=== PATIENT | female | born 1935 | race Caucasian/White ===

== ENCOUNTER 2020-01-15 06:45 | Outpatient (CLI) | payer BC, OTHER ==
[2020-01-15 16:11] LABS: INR-International Normal Ratio 1.6; PTT 35.9 sec (22.9-36.1)
[2020-01-16 12:00] LABS: SARS-CoV-2 MS2 Positive; SARS-CoV-2 N Gene Negative; SARS-CoV-2 S Gene Negative; SARS-CoV-2 by NAA Not Detected (NotDetected); SARS-CoV-2 orf1ab Negative
--- NOTE | 2020-01-17 12:12 | EKG ---
Test Reason : Blood Pressure : / mmHG Vent. Rate : 098 BPM Atrial Rate : 196 BPM P-R Int : 000 ms QRS Dur : 090 ms QT Int : 274 ms P-R-T Axes : 089 -43 -78 degrees QTc Int : 349 ms Atrial flutter with 2:1 A-V conduction Left axis deviation RSR' or QR pattern in V1 suggests right ventricular conduction delay Marked ST abnormality, possible inferior subendocardial injury Abnormal ECG No previous ECGs available Confirmed by VERONICA HUERTA (2) on 01/17/2020 12:12:17 PM Referred By: MILLIE Confirmed By:VERONICA HUERTA
== END 2020-01-15 06:46 | disposition home or self-care (01) ==
LOC: LABBT 06:45
PROVIDERS: ATTEND Internal Medicine Cardiovascular Disease
DX: Z01.818 Encounter for other preprocedural examination (principal); I48.91 Unspecified atrial fibrillation; Z20.828 Contact with and (suspected) exposure to other viral communicable diseases
CPT/HCPCS: 36415; 80061; 84439; 84443; 85610; 85730; 87635; 93005; 93010; U0003

== ENCOUNTER 2020-01-20 10:54 | Day surgery (SDC) | payer BC ==
[2020-01-19 14:09] VITALS: BMI 21.2
[2020-01-20] MEDS ORDERED: PROPOFOL 20 ML ONE (11:40)
[2020-01-20] MEDS ORDERED: Lidocaine 1% PF 5 ML VIAL ONE (11:40)
--- NOTE | 2020-01-20 12:17 | OP ---
DATE OF PROCEDURE: 01/20/2020 PROCEDURE PERFORMED: External electrical cardioversion. REASON FOR PROCEDURE: Ms. Hong is an 84-year-old lady with prior history of persisting atrial fibrillation, started on amiodarone out of town couple of months ago. She has still persisting atypical atrial flutter. She has been well anticoagulated with appropriately reduced dose of Eliquis for well over a month. She is here for a planned cardioversion. DESCRIPTION OF PROCEDURE: The patient received propofol by Anesthesia specialist. After adequate level of sedation achieved, a synchronized 100-joule shock promptly converted the patient back to sinus rhythm. Returned rhythm was 60 beats per minute. The patient tolerated the procedure well. No complications noted. CONCLUSION: Successful cardioversion. PLAN: Continue Eliquis and amiodarone at least intermediate term. Follow up in the office to assess symptoms. Job ID: [id number]
== END 2020-01-20 13:20 | disposition home or self-care (01) ==
LOC: SDC 10:54 → CCL 13:20
PROVIDERS: ATTEND Internal Medicine Cardiovascular Disease
PROC: 5A2204Z Restoration of Cardiac Rhythm, Single (ICD-10-PCS; principal; 2020-01-20)
DX: I48.19 Other persistent atrial fibrillation (principal); I48.4 Atypical atrial flutter; I25.10 Atherosclerotic heart disease of native coronary artery without angina pectoris; I25.2 Old myocardial infarction; I10 Essential (primary) hypertension; I05.9 Rheumatic mitral valve disease, unspecified; E78.5 Hyperlipidemia, unspecified; Z79.01 Long term (current) use of anticoagulants; Z79.899 Other long term (current) drug therapy; Z87.891 Personal history of nicotine dependence; Z95.1 Presence of aortocoronary bypass graft
CPT/HCPCS: 92960; 93005; 93010; J2704

== ENCOUNTER 2020-03-07 12:37 | Outpatient (CLI) | payer BC, MEDICARE ==
--- NOTE | 2020-03-07 14:29 | ULT ---
Thyroid sonogram HISTORY: Thyroid nodules. FINDINGS: The right thyroid lobe measures up to 4.1 cm length. There are innumerable solid and cystic nodules throughout. The largest is a well-circumscribed oval heterogeneous predominantly solid hypoechoic nodule at the inferior pole that is 1.6 cm depth by 1.7 cm length by 1.1 cm width. No inte rnal calcifications. Slightly lobular margins. Isthmus is 0.2 cm thick. Left thyroid lobe measures up to 4.6 cm. Multiple solid and cystic nodules are also present on the le ft. The largest is a well-circumscribed oval heterogeneous predominantly isoechoic nodule at the superficial aspect of the midportion. It is 1.2 cm length by 0.8 cm width by 0.8 cm depth. IMPRESSION : Multiple the lateral thyroid nodules. The most aggressive is a complex lesion at the inferior pole of the right thyroid lobe. TI RADS 5. Highly suspicious. Given the size, tissue sampling is warranted. Consider sonographic guided FNA.
== END 2020-03-07 12:38 | disposition home or self-care (01) ==
LOC: BICULT 12:37
PROVIDERS: ATTEND Internal Medicine Cardiovascular Disease
DX: E04.2 Nontoxic multinodular goiter (principal); E07.89 Other specified disorders of thyroid
CPT/HCPCS: 76536

== ENCOUNTER 2020-04-22 12:04 | Outpatient (CLI) | payer MEDICARE, BC ==
[2020-04-23 06:16] LABS: SARS-CoV-2 PCR by NAA Not Detected (NotDetected)
== END 2020-04-22 12:05 | disposition home or self-care (01) ==
LOC: LABBT 12:04
PROVIDERS: ATTEND Specialist
DX: Z01.812 Encounter for preprocedural laboratory examination (principal); Z20.822 Contact with and (suspected) exposure to COVID-19; E04.1 Nontoxic single thyroid nodule
CPT/HCPCS: U0003; U0005; 87635

== ENCOUNTER 2020-04-27 12:35 | Day surgery (SDC) | payer MEDICARE, BC ==
[2020-04-26 14:39] VITALS: BMI 21.2
[2020-04-27] MEDS ORDERED: Lidocaine 1% PF 5 ML VIAL ONE (12:40)
[2020-04-27] MEDS ORDERED: Sodium Bicarbonate 2.5 MEQ/5 ML VIAL ONE (12:40)
--- NOTE | 2020-04-27 14:25 | ULT ---
Thyroid mass FNA sonographic guided HISTORY: Thyroid mass. FINDINGS: After explaining the procedure and answering all questions, the heterogeneous tolerated sachin ler than wide nodule at the inferior aspect of the right thyroid lobe was again visualized. Sterile technique, buffered local anesthesia, sonographic guidance, and a medial approach were used t o carefully advance a 25-gauge needle into the heterogeneous solid thyroid mass. Position was confirmed with sonography. A total of 4 FNA passes were made. Tissue was submitted to pathology for processing. Postprocedure imaging shows no evidence of complication. Patient tolerated the procedure well and was dismissed in good condition. IMPRESSION : Technically successful sonographic guided FNA right thyroid lobe mass. Pathology is pending.
[2020-04-27 14:35] VITALS: BP 132/62; TEMP 98.1
== END 2020-04-27 14:00 | disposition home or self-care (01) ==
LOC: ULT 12:35
PROVIDERS: ATTEND Specialist
PROC: 0GBH3ZX Excision of Right Thyroid Gland Lobe, Percutaneous Approach, Diagnostic (ICD-10-PCS; principal; 2020-04-27)
DX: E04.1 Nontoxic single thyroid nodule (principal); I48.91 Unspecified atrial fibrillation; I25.10 Atherosclerotic heart disease of native coronary artery without angina pectoris; I12.9 Hypertensive chronic kidney disease with stage 1 through stage 4 chronic kidney disease, or unspecified chronic kidney disease; N18.9 Chronic kidney disease, unspecified; Z79.01 Long term (current) use of anticoagulants; Z79.899 Other long term (current) drug therapy; Z87.891 Personal history of nicotine dependence
CPT/HCPCS: 60100; 76942; 88173; 90471; 90732; G0009

== ENCOUNTER 2020-05-19 09:38 | Outpatient (CLI) | payer MEDICARE, BC ==
--- NOTE | 2020-05-19 11:32 | ULT ---
ULTRASOUND RETROPERITONEUM COMPLETE: (RENAL) DATE: 05/19/2020 HISTORY: 84-year-old female with chronic kidney disease, stage unspecified FINDINGS: The right kidney measures 10 x 4 x 4 cm. The left kidney measures 9.5 x 4.5 x 4 cm. Both kidneys have normal parenchymal echogenicity. There is no hydronephrosis. No moderate sized or large renal cystic or solid renal lesion is identified. Cursory images of the urinary bladder demonstrate no gross abnormality. Small right pleural effusion. Small amount of free fluid in Morison's pouch. IMPRESSION: 1. Normal sonographic appearance of the kidneys. 2. Minimal ascites. 3. Right pleural effusion.
== END 2020-05-19 09:39 | disposition home or self-care (01) ==
LOC: BICULT 09:38
PROVIDERS: ATTEND Internal Medicine Nephrology
DX: N18.4 Chronic kidney disease, stage 4 (severe) (principal); R18.8 Other ascites; J90 Pleural effusion, not elsewhere classified
CPT/HCPCS: 76770

== ENCOUNTER 2020-05-25 17:17 | Inpatient (IN) | payer MEDICARE ==
--- NOTE | 2020-05-25 17:40 | RAD ---
XR Chest Pa Lat STANDARD HISTORY: Shortness of breath with fatigue COMPARISON: None FINDINGS: There are changes of median sternotomy and valvular surgery. The heart size is borderline. The aorta is tortuous. No pneumothoraces are seen. There is a small-moderate right-sided pleural effusion with adjacent infiltrate/atelectatic changes. No pneumothoraces are seen.
[2020-05-25 18:31] LABS: Hemoglobin 7.9 g/dL (12.0-16.0); Mean Corpuscular HGB CONC 29.6 g/dL (32.0-36.0); Mean Corpuscular Hemoglobin 25.9 pg (27.0-31.0); Mean Corpuscular Volume 87.4 fL (78.0-98.0); Mean Platelet Volume 9.3 fL (7.4-10.4); Platelet Count 200 thou/uL (130-400); RBC Distribution Width 13.7 % (11.5-14.5); Red Blood Cell (RBC) Count 3.06 mill/uL (4.20-5.40); White Blood Cell (WBC) Count 6.1 thou/uL (4.8-10.8)
[2020-05-25 18:32] LABS: #Eosinphils 0.3 thou/uL (0.0-0.7); #Monocytes 0.7 thou/uL (0.11-0.59); #Neutrophils 4.1 thou/uL (1.40-6.50); %Basophils 0.8 % (0.0-1.0); %Eosinophils 4.2 % (0.0-10.0); %Lymphocytes 16.9 % (21.0-51.0); %Monocytes 11.2 % (0.0-10.0); %Neutrophils 66.9 % (42.0-75.0)
[2020-05-25 18:41] LABS: ALT (SGPT) 22 U/L (8-55); AST (SGOT) 31 U/L (5-34); Albumin 3.7 g/dL (3.4-4.8); Alkaline Phosphatase 103 U/L (40-110); Anion Gap 14 mmol/L (10-20); BUN (Urea Nitrogen) 29 mg/dL (9.8-20.1); Bilirubin, Total 1.2 mg/dL (0.2-1.2); Calc. Creatinine Clearance 0 mL/min (70-130); Calcium 8.4 mg/dL (7.8-10.44); Carbon Dioxide 23 mmol/L (23-31); Chloride 109 mmol/L (98-107); Globulin 2.6 g/dL (2.4-3.5); Glucose 102 mg/dL (83-110); Potassium 3.9 mmol/L (3.5-5.1); Protein, Total 6.3 g/dL (5.8-8.1); Sodium 142 mmol/L (136-145)
[2020-05-25 19:02] LABS: Anisocytosis SLIGHT = 6-15 cells (100X) (0-5/hpf); Hypochromia MODERATE=16-30 cells (100X) (0-5/hpf); MDiff Complete? YES; Ovalocytes SLIGHT = 2-5 cells (100X) (0-1/hpf); Platelet Morphology Comment Appears Adequate; Polychromasia MODERATE = 3-4 cells (100X) (0-2/hpf); Reflex for Review?? YES; Schistocytes SLIGHT = 2-5 cells (100X) (0-1/hpf); Stomatocytes SLIGHT = 2-5 cells (100X) (0-1/hpf); Target Cells SLIGHT = 2-5 cells (100X) (0-1/hpf)
[2020-05-25 19:24] LABS: Bacteria/HPF 4+ HPF (None Seen); Bilirubin Negative (Negative); Blood, Urine Negative (Negative); Clarity Clear (Clear); Glucose, Urine (Dipstick) Normal (Negative); Ketone, Urine Negative (Negative); Leukocyte 250 Leu/uL (Negative); Nitrite 2+ (Negative); Protein, Urine (Dipstick) Negative (Neg-Trace); RBC/HPF 0-3 HPF (0-3); Specific Gravity, Urine 1.013 (1.002-1.036); Squamous Epithelial None Seen HPF (0-3); Urobilinogen Normal mg/dL (Less than 2); WBC/HPF 21-50 HPF (0-3); pH, Urine 5.5 (5.0-9.0)
--- NOTE | 2020-05-25 20:38 | PDOC.FPRHP ---
"- History of Present Illness Chief Complaint: Shortness of breath History of Present Illness: Ms. Hong is a pleasant 84yoF who was sent to the ER by one of her primary care physicians for worsening shortness of breath. She states over the last week she has had increasing dyspnea on exertion. She endorses minimal increase in her leg swelling. She denies recent illness or changes in her overall health. Her last medication changes were in March of this year and it appears that metoprolol and spironolactone were discontinued for an unclear reason. She did receive the 1st COVID vaccine about 1 week ago. PCP: RASHAWN Chen Phone Triage Specialist: Dr. Daniels Gullet Slitter: Dr. Velazquez EP: Dr. Boston ED Course: 80mg lasix IV - Allergies/Adverse Reactions Allergies Allergy/AdvReac Type Severity Reaction Status Date / Time No Known Allergies Allergy Verified 05/26/20 03:20 - Home Medications Medication Instructions Recorded Confirmed Type Amiodarone HCl 200 mg PO DAILY 01/19/20 05/25/20 History Apixaban [Eliquis] 2.5 mg PO BID 01/19/20 05/25/20 History Atorvastatin Calcium [Lipitor] 10 mg PO HS 01/19/20 05/25/20 History Famotidine 40 mg PO HS 01/19/20 05/25/20 History Ferrous Sulfate 325 mg PO DAILY 01/19/20 05/25/20 History Furosemide 40 mg PO DAILY 01/19/20 05/25/20 History - History PMHx: HFpEF (ECHO 01/2020 EF 55-60% grade 2/3 diastolic dysfunction) CKD IV Anemia of chronic kidney disease H/o Atrial fibrillation/flutter s/p successful cardioversion 12/2019. 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 No alcohol or tobacco use. COVID Vaccine #1 05/17/2020 - Review of Systems General: denies: fever/chills, weight/appetite/sleep changes, night sweats, f atigue Eyes: denies: eye pain, vision changes ENT: denies: nasal congestion, rhinorrhea Respiratory: reports: shortness of breath, exercise intolerance. denies: cough, congestion Cardiovascular: reports: edema, paroxysmal nocturnal dyspnea, orthopnea. denies: chest pain, palpitation Gastrointestinal: denies: nausea, vomiting, diarrhea, constipation, abdominal pain Genitourinary: denies: incontinence, dysuria, polyuria Skin: denies: rashes, lesions, jaundice Musculoskeletal: reports: swelling. denies: pain, tenderness, stiffness Neurological: reports: weakness. denies: numbness, syncope, seizure Psychological: denies: anxiety, depression - Vital signs BP: 122/63, Pulse: 66, Resp: 18, Temp: 97.9 (Oral), Pain: 0, O2 sat: 100 on (2L Oxygen), Time: 05/25/2020 20:58 | Wt: 57kg - Physical Exam Constitutional: NAD, awake, alert and oriented, well developed HEENT: normocephalic and atraumatic, PERRLA, EOMI, conjunctiva clear, grossly normal vision, grossly normal hearing Neck: supple, FROM, trachea midline -Neck: JVD present Chest: no-tender to palpation Heart: RRR, normal S1/S2, pulses present -Heart: Holosystolic murmur present, audible throughout. Non-pitting edema present BLE Lungs: CTAB, no respiratory distress, good air movement -Lungs: Mild crackles in the bases bilaterally Abdomen: soft, non-tender, bowel sounds present Musculoskeletal: normal structure Neurological: no focal deficit, CN II-XII intact, normal sensation Skin: no rash/lesions, good turgor, capillary refill <2 seconds Heme/Lymphatic: no unusual bruising or bleeding, no purpura, no petechia Psychiatric: normal mood and affect, good judgment and insight, intact recent and remote memory FMR H&P: Results - Labs Result Diagrams: 05/25/20 18:09 05/25/20 18:09 Lab results: WBC 6.1 thou/uL (4.8-10.8) 05/25/20 18:09 Hgb 7.9 g/dL (12.0-16.0) L 05/25/20 18:09 Hct 26.8 % (36.0-47.0) L 05/25/20 18:09 MCV 87.4 fL (78.0-98.0) 05/25/20 18:09 Plt Count 200 thou/uL (130-400) 05/25/20 18:09 Neutrophils % 66.9 % (42.0-75.0) 05/25/20 18:09 Sodium 142 mmol/L (136-145) 05/25/20 18:09 Potassium 3.9 mmol/L (3.5-5.1) 05/25/20 18:09 Chloride 109 mmol/L (98-107) H 05/25/20 18:09 Carbon Dioxide 23 mmol/L (23-31) 05/25/20 18:09 BUN 29 mg/dL (9.8-20.1) H 05/25/20 18:09 Creatinine 1.65 mg/dL (0.6-1.1) H 05/25/20 18:09 Glucose 102 mg/dL (83-110) 05/25/20 18:09 Calcium 8.4 mg/dL (7.8-10.44) 05/25/20 18:09 Total Bilirubin 1.2 mg/dL (0.2-1.2) 05/25/20 18:09 AST 31 U/L (5-34) 05/25/20 18:09 ALT 22 U/L (8-55) 05/25/20 18:09 Alkaline Phosphatase 103 U/L (40-110) 05/25/20 18:09 B-Natriuretic Peptide 1252.1 pg/mL (0-100) H 05/25/20 18:25 Serum Total Protein 6.3 g/dL (5.8-8.1) 05/25/20 18:09 Albumin 3.7 g/dL (3.4-4.8) 05/25/20 18:09 Urine Ketones Negative mg/dL (Negative) 05/25/20 17:59 Urine Blood Negative (Negative) 05/25/20 17:59 Urine Nitrite 2+ (Negative) A 05/25/20 17:59 Ur Leukocyte Esterase 250 Cody/uL (Negative) A 05/25/20 17:59 Urine RBC 0-3 HPF (0-3) 05/25/20 17:59 Urine WBC 21-50 HPF (0-3) A 05/25/20 17:59 Ur Squamous Epith Cells None Seen HPF (0-3) 05/25/20 17:59 Urine Bacteria 4+ HPF (None Seen) A 05/25/20 17:59 - EKG Interpretation EKG: Normal sinus rhythm - Radiology Interpretation Chest x-ray Status: report reviewed by me (FINDINGS: There are changes of median sternotomy and valvular surgery. The heart size is borderline. The aorta is tortuous. No pneumothoraces are seen. There is a small-moderate right-sided pleural effusion with adjacent infiltrate/atelectatic changes. No pneumothoraces are seen.) FMR H&P: A/P - Problem List (1) (HFpEF) heart failure with preserved ejection fraction Current Visit: Yes Status: Acute Code(s): I50.30 - UNSPECIFIED DIASTOLIC (CONGESTIVE) HEART FAILURE (2) Acute exacerbation of congestive heart failure Current Visit: Yes Status: Acute Code(s): I50.9 - HEART FAILURE, UNSPECIFIED (3) CAD (coronary artery disease) Current Visit: Yes Status: Acute Code(s): I25.10 - ATHSCL HEART DISEASE OF [place] CORONARY ARTERY W/O ANG PCTRS (4) CKD (chronic kidney disease), stage IV Current Visit: Yes Status: Acute Code(s): N18.4 - CHRONIC KIDNEY DISEASE, STAGE 4 (SEVERE) (5) Anemia in chronic illness Current Visit: Yes Status: Acute Code(s): D63.8 - ANEMIA IN OTHER CHRONIC DISEASES CLASSIFIED ELSEWHERE (6) Asymptomatic bacteriuria Current Visit: Yes Status: Acute Code(s): R82.71 - BACTERIURIA - Plan Acute on chronic heart failure, h/o HFpEF - BNP 1252 - s/p 80mg IV Lasix in ED. - Strict I/Os. - Careful diuresis 2/2 CKD IV - Monitor daily weights, HH Diet, fluid restriction 1500mL - Recent outpatient cardiology evaluation: ECHO 01/2020 EF 55-60% w/ 2/3 diastolic dysfunction Normal stress test Carotid doppler without hemodynamic flow changes EKG NSR CKD IV - Sees Dr. Velazquez outpatient. - Cr 1.65 on admission, lower than Cr in the fall. - Daily BMP - Careful diuresis Asymptomatic bacteriuria - UA appears infected, however she is asymptomatic. - No abx. - Culture in case symptoms develop. H/o atrial arrhythmia (afib and aflutter) - s/p cardioversion 12/2019. - on amiodarone, will continue. - Continue eliquis Dispo: Stable, admit to inpatient tele for diuresis Code: full VTE: eliquis BID IV fluids: SL"
[2020-05-25] MEDS ORDERED: Furosemide 100 MG/10 ML VIAL ONE (20:41)
[2020-05-25] MEDS ORDERED: Ondansetron ODT 4 MG TAB PO PRN (21:34)
[2020-05-25] MEDS ORDERED: Acetaminophen 325 MG TAB PO PRN (21:34)
[2020-05-25] MEDS ORDERED: Calcium Carbonate 500 MG ChewTAB PO PRN (21:34)
[2020-05-25 22:40] LABS: Troponin I 0.017 ng/mL (< 0.028)
[2020-05-26 00:04] VITALS: BMI 23.3
[2020-05-26 01:09] LABS: Troponin I 0.013 ng/mL (< 0.028)
[2020-05-26 04:30] LABS: SARS-CoV-2 PCR by NAA Not Detected (NotDetected)
[2020-05-26 05:12] LABS: Anion Gap 14 mmol/L (10-20); BUN (Urea Nitrogen) 29 mg/dL (9.8-20.1); Calc. Creatinine Clearance 25 mL/min (70-130); Calcium 8.2 mg/dL (7.8-10.44); Carbon Dioxide 22 mmol/L (23-31); Chloride 108 mmol/L (98-107); Glucose 89 mg/dL (83-110); Potassium 3.4 mmol/L (3.5-5.1); Sodium 141 mmol/L (136-145)
--- NOTE | 2020-05-26 06:10 | PDOC.FM ---
- Subjective Subjective: Patient is feeling much better this AM. Reports no SOB and stable LE edema. She has no CP and N/V. - Objective MAR Reviewed: Yes Vital Signs & Weight: Vital Signs (12 hours) Temp Pulse Resp BP BP Pulse Ox 05/26/20 03:40 97.6 F 76 19 103/56 L 97 05/26/20 01:39 100 05/25/20 22:38 97.5 F L 64 20 106/52 L 100 Weight Weight 57.697 kg I&O: 05/24/20 05/25/20 05/26/20 06:59 06:59 06:59 Intake Total 120 Output Total 600 Balance -480 Result Diagrams: 05/26/20 07:41 05/26/20 04:42 Phys Exam - Physical Examination Constitutional: NAD R sided bounding pulse Respiratory: no wheezing, no rales, no rhonchi, clear to auscultation bilateral Cardiovascular: RRR, no rub 2/6 systolic ejection murmur Gastrointestinal: soft, non-tender, no distention, positive bowel sounds 1+ edema Neurological: non-focal, moves all 4 limbs Psychiatric: normal affect, A&O x 3 Dx/Plan - Plan Plan: Acute on chronic heart failure, h/o HFpEF - BNP 1252, no record of other BNP in our system - Careful diuresis 2/2 CKD IV - Will continue home Lasix given improvement in sx - Monitor daily weights, HH Diet, fluid restriction 1500mL, strict I/Os - Recent outpatient cardiology evaluation: ECHO 01/2020 EF 55-60% w/ 2/3 diastolic dysfunction Normal stress test Carotid doppler without hemodynamic flow changes EKG NSR Anemia - Hgb 8 this am, continue to monitor - Consider transfusion given significant CAD hx with CABG and valve repair CKD IV - Sees Dr. Velazquez outpatient. - SCr improving with diuresis - Daily BMP - Careful diuresis Asymptomatic bacteriuria - UA appears infected, however she is asymptomatic. - No abx. - Culture in case symptoms develop. H/o atrial arrhythmia (afib and aflutter) - s/p cardioversion 12/2019. - on amiodarone, will continue. - Continue eliquis Dispo: Stable, admitted to inpatient tele for diuresis, DC likely within next 48 hrs Code: full VTE: eliquis BID IV fluids: SL Addendum - Attending - Attending Attestation Date/Time: 05/26/20 [id number] I personally evaluated the patient and discussed the management with Dr. Vazquez. I agree with the History, Examination, Assessment and Plan documented above with any addition or exceptions noted below. Patient with significant improvement after mild diuresis. Suspect mild dCHF exacerbation. She is able to ambulate without difficulty today. Consider that her symptoms could also be related to symptomatic anemia, but H/H stable overnight. She does have downtrend over the last few months, on Eliquis therapy. Discussed with patient and she would like to have outpatient anemia workup. She has no bleeding source identified at this time, and she denies any GI bleeding, though does have history of gastric ulcer per her report. Starting PPI on discharge with further workup outpatient.
[2020-05-26] MEDS ORDERED: Potassium Chloride 20 MEQ TAB PO SCH (06:15)
[2020-05-26 08:02] LABS: #Eosinphils 0.2 thou/uL (0.0-0.7); #Lymphocytes 0.9 thou/uL (1.20-3.40); #Monocytes 0.4 thou/uL (0.11-0.59); %Basophils 0.9 % (0.0-1.0); %Eosinophils 3.6 % (0.0-10.0); %Lymphocytes 19.5 % (21.0-51.0); %Monocytes 8.7 % (0.0-10.0); %Neutrophils 67.3 % (42.0-75.0); Mean Corpuscular HGB CONC 30.4 g/dL (32.0-36.0); Mean Corpuscular Hemoglobin 26.2 pg (27.0-31.0); Mean Platelet Volume 9.2 fL (7.4-10.4); Platelet Count 187 thou/uL (130-400); RBC Distribution Width 13.6 % (11.5-14.5); Red Blood Cell (RBC) Count 3.04 mill/uL (4.20-5.40); White Blood Cell (WBC) Count 4.4 thou/uL (4.8-10.8)
[2020-05-26] MEDS ORDERED: Furosemide 40 MG TAB PO SCH (09:00)
[2020-05-26] MEDS ORDERED: Ferrous Sulfate 325 MG TAB PO SCH (09:00)
[2020-05-26] MEDS ORDERED: Amiodarone 200 MG TAB PO SCH (09:00)
[2020-05-26] MEDS ORDERED: Apixaban 2.5 MG TAB PO SCH (09:00)
[2020-05-26 15:11] VITALS: BP 100/50; TEMP 97.8
--- NOTE | 2020-05-26 16:15 | ULT ---
CAROTID DOPPLER: Ultrasound and Doppler studies performed on the extracranial carotid arteries. Color Doppler, spectra l analysis, and velocity recordings obtained. INDICATION: Concern of right-sided aneurysm FINDINGS: Ultrasound images show mild intimal thickening bilaterally. Mild echogenic plaque. Velocity recordings in bilateral Common Carotid and Internal Carotid arteries are within normal range . No evidence of hemodynamically significant stenosis. Vertebral arteries show antegrade flow. Dilated right internal jugular vein is noted incidentally. IMPRESSION: No evidence of significant stenosis Dilated right internal jugular vein.
[2020-05-26] MEDS ORDERED: Atorvastatin Calcium 10 MG TAB PO SCH (21:00)
[2020-05-26] MEDS ORDERED: Famotidine 20 MG TAB PO SCH (21:00)
--- NOTE | 2020-05-27 04:11 | DIS ---
DATE OF ADMISSION: 05/25/2020 DATE OF DISCHARGE: 05/26/2020 RESIDENT: Dale Vazquez MD ADMITTING ATTENDING: Virgilio Diaz MD DISCHARGE ATTENDING: Elfego Lewis MD CONSULTATIONS: None. PROCEDURES: The patient had a carotid Doppler ultrasound showing no evidence of significant carotid stenosis with incidental finding of dilated right internal jugular vein. Chest x-ray on admission showing postoperative changes with small right-sided pleural effusion and no pneumothoraces. PRIMARY DIAGNOSIS: Acute on chronic heart failure, history of heart failure with preserved ejection fraction. SECONDARY DIAGNOSES: Chronic kidney disease stage 4, asymptomatic bacteriuria, history of atrial fibrillation and atrial flutter status post cardioversion in 12/2019. DISCHARGE MEDICATIONS: 1. Protonix 40 mg p.o. daily. 2. Amiodarone 200 mg p.o. daily. 3. Eliquis 2.5 mg p.o. b.i.d. 4. Atorvastatin 10 mg p.o. q.h.s. 5. Ferrous sulfate 325 mg p.o. daily. 6. Furosemide 40 mg p.o. daily. Discontinued medications: Discontinue the patient's famotidine given starting on Protonix. HISTORY OF PRESENT ILLNESS/HOSPITAL COURSE: The patient is an 84-year-old female with a past medical history of heart failure with preserved ejection fraction, atrial fibrillation and atrial flutter, who presented to the ER due to worsening shortness of breath over the last week. Over the course of hospital stay, the patient was given 80 mg of IV Lasix overnight and in the morning, felt back to baseline. The patient got up and walked with therapy and walked down the reynolds and back to the room with baseline level of exertion. Of note, the patient's hemoglobin was 7.9 on admission and 8.0 on repeat the next a.m. This is similar to labs drawn in April by Dr. Vizcarra. However, this is decreased from numbers found in March where hemoglobin was closer to 11. On admission, the patient was also found to have right-sided vessel distention. This was evaluated with right-sided ultrasound showing no carotid stenosis, but right internal jugular vein dilation. Given the patient's drop in hemoglobin over the past couple months, the patient was started on Protonix instead of famotidine given possibility of GI bleed. The patient denies any blood in stool, any dark stools, or any nausea and vomiting of blood. The patient does have a history of GI bleeding approximately 1 year ago, was evaluated with colonoscopy and EGD, where there was concern for an ulcer, but on EGD, no ulcer was found per the patient. This was done before moving to the area. DISPOSITION: Stable. DISCHARGE INSTRUCTIONS: 1. Location: Home. 2. Diet: Heart healthy. 3. Activity: As tolerated. 4. Followup: The patient is to follow up with PCP, Dr. Chen, within 10 days. Consider colonoscopy referral given drop in hemoglobin as well as further evaluation of right internal jugular vein dilation with possible ECHO or other diagnostic study. The patient has appointment on May 31, with Dr. Velazquez, and recommended patient keep this appointment. Job ID: [id number] [facility]
--- NOTE | 2020-05-28 10:31 | EKG ---
Test Reason : Blood Pressure : / mmHG Vent. Rate : 065 BPM Atrial Rate : 065 BPM P-R Int : 158 ms QRS Dur : 094 ms QT Int : 514 ms P-R-T Axes : 088 003 -29 degrees QTc Int : 534 ms Normal sinus rhythm Incomplete right bundle branch block Cannot rule out Anteroseptal infarct , age undetermined Abnormal ECG Low voltage Confirmed by JACKIE VANESSA, TOMEKA Mike ([id number]), [employer] EDISON FRANKEL ([id number]) on 05/28/2020 10:30:41 AM Referred By: Confirmed By:TOMEKA MEJIA MD
== END 2020-05-26 18:35 | disposition home or self-care (01) | DRG 292 ==
LOC: ERS 17:17 → 2NO 20:34
PROVIDERS: ADMIT Family Medicine; ATTEND Family Medicine
DX: I50.33 Acute on chronic diastolic (congestive) heart failure (principal); N18.4 Chronic kidney disease, stage 4 (severe); D64.9 Anemia, unspecified; R82.71 Bacteriuria; Z20.822 Contact with and (suspected) exposure to COVID-19; Z79.01 Long term (current) use of anticoagulants; Z95.1 Presence of aortocoronary bypass graft; Z87.891 Personal history of nicotine dependence
CPT/HCPCS: 36415; 71046; 80048; 80053; 81003; 81015; 83880; 84443; 84484; 85025; 85060; 87077; 87086; 87186; 87635; 93005; 93798; 93880; 96374; J1940; U0003; U0005

== ENCOUNTER 2020-06-03 11:15 | Day surgery (SDC) | payer MEDICARE ==
[2020-06-03] MEDS ORDERED: Sodium Chloride 0.9% 20 ML ONE ×2 (11:27→11:31)
[2020-06-03] MEDS ORDERED: Acetaminophen 500 MG TAB PO SCH (11:30)
[2020-06-03] MEDS ORDERED: diphenhydrAMINE 25 MG CAP PO SCH (11:30)
[2020-06-03 20:09] VITALS: BP 113/55; TEMP 97.7
== END 2020-06-03 20:09 | disposition home or self-care (01) ==
LOC: ONC/OP 11:15
PROVIDERS: ATTEND Internal Medicine Hematology & Oncology
PROC: 30233N1 Transfusion of Nonautologous Red Blood Cells into Peripheral Vein, Percutaneous Approach (ICD-10-PCS; principal; 2020-06-03)
DX: D64.9 Anemia, unspecified (principal); D69.6 Thrombocytopenia, unspecified; D50.0 Iron deficiency anemia secondary to blood loss (chronic); N18.9 Chronic kidney disease, unspecified; D63.1 Anemia in chronic kidney disease
CPT/HCPCS: 36415; 36430; 80053; 82248; 82607; 82668; 82728; 82746; 83540; 83550; 83615; 84100; 84550; 85046; 86850; 86900; 86901; P9016; Q0163

== ENCOUNTER 2020-07-05 08:24 | Day surgery (SDC) | payer MEDICARE, BC ==
[2020-07-05] MEDS ORDERED: diphenhydrAMINE 25 MG CAP PO SCH (08:45)
[2020-07-05] MEDS ORDERED: Acetaminophen 500 MG TAB PO SCH (08:45)
[2020-07-05] MEDS ORDERED: Sodium Chloride 0.9% 20 ML ONE (09:12)
[2020-07-05 14:25] VITALS: BP 99/49; TEMP 98
[2020-07-05 14:38] LABS: #Eosinphils 0.1 thou/uL (0.0-0.7); #Lymphocytes 0.8 thou/uL (1.20-3.40); #Monocytes 0.6 thou/uL (0.11-0.59); #Neutrophils 3.9 thou/uL (1.40-6.50); %Basophils 0.3 % (0.0-1.0); %Eosinophils 2.5 % (0.0-10.0); %Lymphocytes 15.2 % (21.0-51.0); %Monocytes 10.6 % (0.0-10.0); %Neutrophils 71.4 % (42.0-75.0); Hemoglobin 7.9 g/dL (12.0-16.0); Mean Corpuscular HGB CONC 32.1 g/dL (32.0-36.0); Mean Corpuscular Hemoglobin 29.9 pg (27.0-31.0); Mean Corpuscular Volume 93.1 fL (78.0-98.0); Mean Platelet Volume 8.7 fL (7.4-10.4); Platelet Count 171 thou/uL (130-400); RBC Distribution Width 17.3 % (11.5-14.5); Red Blood Cell (RBC) Count 2.63 mill/uL (4.20-5.40); White Blood Cell (WBC) Count 5.5 thou/uL (4.8-10.8)
== END 2020-07-05 14:43 | disposition home or self-care (01) ==
LOC: ONC/OP 08:24
PROVIDERS: ATTEND Internal Medicine Hematology & Oncology
PROC: 30233N1 Transfusion of Nonautologous Red Blood Cells into Peripheral Vein, Percutaneous Approach (ICD-10-PCS; principal; 2020-07-05)
DX: D64.9 Anemia, unspecified (principal); D69.6 Thrombocytopenia, unspecified
CPT/HCPCS: 36430; 85025; 86850; 86900; 86901; P9016; Q0163

== ENCOUNTER 2020-07-12 09:54 | Inpatient (IN) | payer BC, MEDICARE ==
[2020-07-12 10:45] LABS: #Eosinphils 0.1 thou/uL (0.0-0.7); #Lymphocytes 0.7 thou/uL (1.20-3.40); #Monocytes 0.6 thou/uL (0.11-0.59); #Neutrophils 3.6 thou/uL (1.40-6.50); %Basophils 0.1 % (0.0-1.0); %Eosinophils 2.2 % (0.0-10.0); %Lymphocytes 13.3 % (21.0-51.0); %Monocytes 12.9 % (0.0-10.0); %Neutrophils 71.4 % (42.0-75.0); Hemoglobin 7.3 g/dL (12.0-16.0); Mean Corpuscular HGB CONC 31.6 g/dL (32.0-36.0); Mean Corpuscular Hemoglobin 29.6 pg (27.0-31.0); Mean Corpuscular Volume 93.7 fL (78.0-98.0); Platelet Count 195 thou/uL (130-400); RBC Distribution Width 15.4 % (11.5-14.5); Red Blood Cell (RBC) Count 2.47 mill/uL (4.20-5.40)
[2020-07-12 11:00] LABS: ALT (SGPT) 25 U/L (8-55); AST (SGOT) 49 U/L (5-34); Albumin 3.2 g/dL (3.4-4.8); Alkaline Phosphatase 77 U/L (40-110); Anion Gap 15 mmol/L (10-20); BUN (Urea Nitrogen) 62 mg/dL (9.8-20.1); Bilirubin, Total 0.9 mg/dL (0.2-1.2); Calc. Creatinine Clearance 0 mL/min (70-130); Calcium 8.8 mg/dL (7.8-10.44); Carbon Dioxide 24 mmol/L (23-31); Chloride 101 mmol/L (98-107); Globulin 2.2 g/dL (2.4-3.5); Glucose 112 mg/dL (83-110); Protein, Total 5.4 g/dL (5.8-8.1); Sodium 135 mmol/L (136-145)
[2020-07-12 12:01] LABS: Bilirubin Negative (Negative); Blood, Urine Negative (Negative); Clarity Clear (Clear); Glucose, Urine (Dipstick) Normal (Negative); Ketone, Urine Negative (Negative); Leukocyte Negative Leu/uL (Negative); Nitrite Negative (Negative); Protein, Urine (Dipstick) Negative (Neg-Trace); Specific Gravity, Urine 1.008 (1.002-1.036); Urobilinogen Normal mg/dL (Less than 2); pH, Urine 7.5 (5.0-9.0)
[2020-07-12] MEDS ORDERED: Furosemide 40 MG TAB ONE (12:01)
[2020-07-12] MEDS ORDERED: Acetaminophen 325 MG TAB PO PRN (13:59)
[2020-07-12] MEDS ORDERED: Melatonin 3 MG TAB PO PRN (15:08)
[2020-07-12 15:09] LABS: Troponin I 0.017 ng/mL (< 0.028)
[2020-07-12 16:11] LABS: Reticulocyte Count 8.2 % (0.5-1.5)
[2020-07-12 16:35] LABS: Iron 99 ug/dL (50-170); Iron Binding Capacity, Total 373 mcg/dL (265-497); Transferrin, Serum 298 mg/dL (173-360)
[2020-07-12 16:36] LABS: Iron 100 ug/dL (50-170); Iron Binding Capacity, Total 370 mcg/dL (265-497)
[2020-07-12 16:56] LABS: Troponin I 0.024 ng/mL (< 0.028)
[2020-07-12 17:51] LABS: Hep C IgG Ab Non-Reactive (NonReactive); Hep C Index 0.07 S/CO (0-0.79)
[2020-07-12 19:25] LABS: Troponin I 0.022 ng/mL (< 0.028)
[2020-07-12] MEDS ORDERED: Furosemide 20 MG/2 ML VIAL SLOW IVP SCH (20:30)
[2020-07-12] MEDS ORDERED: Apixaban 2.5 MG TAB PO SCH (21:00)
[2020-07-12] MEDS: Atorvastatin Calcium 10 MG TAB PO SCH (21:26)
[2020-07-12 22:36] VITALS: BMI 22.9
[2020-07-13 05:55] LABS: #Eosinphils 0.1 thou/uL (0.0-0.7); #Lymphocytes 0.7 thou/uL (1.20-3.40); #Monocytes 0.6 thou/uL (0.11-0.59); #Neutrophils 3.6 thou/uL (1.40-6.50); %Basophils 0.1 % (0.0-1.0); %Eosinophils 2.7 % (0.0-10.0); %Lymphocytes 13.1 % (21.0-51.0); %Monocytes 11.5 % (0.0-10.0); %Neutrophils 72.6 % (42.0-75.0); Mean Corpuscular HGB CONC 32.2 g/dL (32.0-36.0); Mean Corpuscular Hemoglobin 29.9 pg (27.0-31.0); Mean Corpuscular Volume 92.8 fL (78.0-98.0); Mean Platelet Volume 8.8 fL (7.4-10.4); Platelet Count 167 thou/uL (130-400); Red Blood Cell (RBC) Count 3.01 mill/uL (4.20-5.40)
[2020-07-13 06:13] LABS: ALT (SGPT) 21 U/L (8-55); AST (SGOT) 29 U/L (5-34); Alkaline Phosphatase 56 U/L (40-110); Anion Gap 13 mmol/L (10-20); BUN (Urea Nitrogen) 56 mg/dL (9.8-20.1); Calc. Creatinine Clearance 18 mL/min (70-130); Calcium 8.1 mg/dL (7.8-10.44); Carbon Dioxide 25 mmol/L (23-31); Chloride 102 mmol/L (98-107); Globulin 1.9 g/dL (2.4-3.5); Glucose 108 mg/dL (83-110); Potassium 3.7 mmol/L (3.5-5.1); Protein, Total 4.9 g/dL (5.8-8.1); Sodium 136 mmol/L (136-145)
[2020-07-13 06:52] LABS: SARS-CoV-2 PCR by NAA Not Detected (NotDetected)
[2020-07-13] MEDS: Amiodarone 200 MG TAB PO SCH (08:28)
[2020-07-13] MEDS: Ferrous Sulfate 325 MG TAB PO SCH (08:28)
[2020-07-13] MEDS ORDERED: Furosemide 20 MG/2 ML VIAL SLOW IVP SCH (09:00)
[2020-07-13] MEDS: cefTRIAXone\\ROCEPHIN 1 GM in Sodium Chloride 0.9% 100 ML IVPB SCH (09:18)
[2020-07-13] MEDS: Atorvastatin Calcium 10 MG TAB PO SCH (20:19)
[2020-07-14 06:11] LABS: #Eosinphils 0.2 thou/uL (0.0-0.7); #Lymphocytes 0.7 thou/uL (1.20-3.40); #Monocytes 0.6 thou/uL (0.11-0.59); #Neutrophils 3.2 thou/uL (1.40-6.50); %Basophils 0.1 % (0.0-1.0); %Eosinophils 4.7 % (0.0-10.0); %Lymphocytes 15.1 % (21.0-51.0); %Neutrophils 68.1 % (42.0-75.0); Hemoglobin 8.8 g/dL (12.0-16.0); Mean Corpuscular HGB CONC 32.9 g/dL (32.0-36.0); Mean Corpuscular Hemoglobin 30.4 pg (27.0-31.0); Mean Corpuscular Volume 92.5 fL (78.0-98.0); Mean Platelet Volume 8.6 fL (7.4-10.4); Platelet Count 166 thou/uL (130-400); RBC Distribution Width 14.8 % (11.5-14.5); Red Blood Cell (RBC) Count 2.89 mill/uL (4.20-5.40); White Blood Cell (WBC) Count 4.7 thou/uL (4.8-10.8)
[2020-07-14 06:31] LABS: Anion Gap 14 mmol/L (10-20); BUN (Urea Nitrogen) 49 mg/dL (9.8-20.1); Calc. Creatinine Clearance 23 mL/min (70-130); Calcium 8.5 mg/dL (7.8-10.44); Carbon Dioxide 23 mmol/L (23-31); Chloride 105 mmol/L (98-107); Glucose 103 mg/dL (83-110); Potassium 3.5 mmol/L (3.5-5.1); Sodium 138 mmol/L (136-145)
[2020-07-14] MEDS: Amiodarone 200 MG TAB PO SCH (07:57)
[2020-07-14] MEDS: Ferrous Sulfate 325 MG TAB PO SCH (07:57)
[2020-07-14] MEDS: cefTRIAXone\\ROCEPHIN 1 GM in Sodium Chloride 0.9% 100 ML IVPB SCH (10:05)
[2020-07-14 16:23] VITALS: BP 120/60; TEMP 97.7
[2020-07-14] MEDS ORDERED: Nitrofurantoin Monohyd/M-Cryst 100 MG CAP PO SCH (21:00)
== END 2020-07-14 17:18 | disposition home or self-care (01) | DRG 291 ==
LOC: ERS 09:54 → OBSVTOIN 13:07 → ERHOLD 13:07 → 2NO 18:56
PROVIDERS: ADMIT Student in an Organized Health Care Education/Training Program; ATTEND Student in an Organized Health Care Education/Training Program
PROC: 30233N1 Transfusion of Nonautologous Red Blood Cells into Peripheral Vein, Percutaneous Approach (ICD-10-PCS; principal; 2020-07-12)
DX: I13.0 Hypertensive heart and chronic kidney disease with heart failure and stage 1 through stage 4 chronic kidney disease, or unspecified chronic kidney disease (principal); I50.33 Acute on chronic diastolic (congestive) heart failure; N17.9 Acute kidney failure, unspecified; N18.4 Chronic kidney disease, stage 4 (severe); N39.0 Urinary tract infection, site not specified; R00.1 Bradycardia, unspecified; R94.31 Abnormal electrocardiogram [ECG] [EKG]; I48.91 Unspecified atrial fibrillation; R74.01 Elevation of levels of liver transaminase levels; D63.1 Anemia in chronic kidney disease; Z20.822 Contact with and (suspected) exposure to COVID-19; Z79.01 Long term (current) use of anticoagulants; Z95.1 Presence of aortocoronary bypass graft; Z95.2 Presence of prosthetic heart valve; Z87.891 Personal history of nicotine dependence
CPT/HCPCS: 36415; 36430; 71045; 80048; 80053; 81003; 82668; 82728; 83540; 83550; 83605; 83880; 84145; 84466; 84484; 85025; 85046; 86803; 86850; 86900; 86901; 87040; 87077; 87086; 87149; 87186; 87635; 93005; G0378; J0696; J1940; J3490; P9016; U0003; U0005

== ENCOUNTER 2020-07-28 09:55 | Observation (INO) | payer MEDICARE ==
[2020-07-28 11:10] LABS: #Eosinphils 0.1 thou/uL (0.0-0.7); #Lymphocytes 0.7 thou/uL (1.20-3.40); #Monocytes 0.6 thou/uL (0.11-0.59); #Neutrophils 2.9 thou/uL (1.40-6.50); %Basophils 0.5 % (0.0-1.0); %Eosinophils 3.3 % (0.0-10.0); %Lymphocytes 15.3 % (21.0-51.0); %Monocytes 13.4 % (0.0-10.0); %Neutrophils 67.5 % (42.0-75.0); Hemoglobin 6.7 g/dL (12.0-16.0); Mean Corpuscular HGB CONC 30.9 g/dL (32.0-36.0); Mean Corpuscular Volume 90.7 fL (78.0-98.0); Mean Platelet Volume 8.9 fL (7.4-10.4); Platelet Count 181 thou/uL (130-400); RBC Distribution Width 13.9 % (11.5-14.5); White Blood Cell (WBC) Count 4.2 thou/uL (4.8-10.8)
[2020-07-28 11:29] LABS: ALT (SGPT) 27 U/L (8-55); AST (SGOT) 34 U/L (5-34); Albumin 3.3 g/dL (3.4-4.8); Alkaline Phosphatase 68 U/L (40-110); Anion Gap 11 mmol/L (10-20); BUN (Urea Nitrogen) 56 mg/dL (9.8-20.1); CK (CPK) 62 U/L (29-168); Calc. Creatinine Clearance 0 mL/min (70-130); Carbon Dioxide 26 mmol/L (23-31); Chloride 102 mmol/L (98-107); Globulin 2.1 g/dL (2.4-3.5); Glucose 105 mg/dL (83-110); Potassium 3.1 mmol/L (3.5-5.1); Protein, Total 5.4 g/dL (5.8-8.1); Sodium 136 mmol/L (136-145)
[2020-07-28] MEDS ORDERED: Potassium Chloride 20 MEQ TAB ONE ×2 (11:53)
[2020-07-28 12:49] LABS: Bilirubin Negative (Negative); Blood, Urine Negative (Negative); Clarity Turbid (Clear); Glucose, Urine (Dipstick) Normal (Negative); Ketone, Urine Negative (Negative); Leukocyte Negative Leu/uL (Negative); Nitrite Negative (Negative); Protein, Urine (Dipstick) Negative (Neg-Trace); Urobilinogen Normal mg/dL (Less than 2)
[2020-07-28] MEDS ORDERED: Acetaminophen 325 MG TAB PO PRN (13:47)
[2020-07-28] MEDS ORDERED: Ondansetron ODT 4 MG TAB PO PRN (13:47)
[2020-07-28] MEDS ORDERED: Ondansetron PF 4 MG/2 ML Vial IVP PRN (13:47)
[2020-07-28] MEDS ORDERED: Furosemide 20 MG/2 ML VIAL SLOW IVP SCH ×3 (14:15→20:00)
[2020-07-28 15:21] LABS: Magnesium 2.3 mg/dL (1.6-2.6); Phosphorus 4.2 mg/dL (2.3-4.7)
[2020-07-28 17:53] VITALS: BMI 23.3
[2020-07-28] MEDS ORDERED: Atorvastatin Calcium 10 MG TAB PO SCH (21:00)
[2020-07-28 23:00] LABS: Hemoglobin 8.9 g/dL (12.0-16.0)
[2020-07-29 04:12] LABS: #Eosinphils 0.1 thou/uL (0.0-0.7); #Lymphocytes 0.6 thou/uL (1.20-3.40); #Monocytes 0.7 thou/uL (0.11-0.59); #Neutrophils 3.9 thou/uL (1.40-6.50); %Basophils 0.5 % (0.0-1.0); %Eosinophils 2.6 % (0.0-10.0); %Lymphocytes 10.8 % (21.0-51.0); %Monocytes 12.7 % (0.0-10.0); %Neutrophils 73.4 % (42.0-75.0); Mean Corpuscular HGB CONC 31.8 g/dL (32.0-36.0); Mean Corpuscular Hemoglobin 29.1 pg (27.0-31.0); Mean Corpuscular Volume 91.6 fL (78.0-98.0); Platelet Count 175 thou/uL (130-400); RBC Distribution Width 13.7 % (11.5-14.5); Red Blood Cell (RBC) Count 3.08 mill/uL (4.20-5.40); White Blood Cell (WBC) Count 5.3 thou/uL (4.8-10.8)
[2020-07-29 04:35] LABS: Anion Gap 11 mmol/L (10-20); BUN (Urea Nitrogen) 49 mg/dL (9.8-20.1); Calc. Creatinine Clearance 23 mL/min (70-130); Calcium 8.1 mg/dL (7.8-10.44); Carbon Dioxide 24 mmol/L (23-31); Chloride 106 mmol/L (98-107); Glucose 130 mg/dL (83-110); Potassium 3.6 mmol/L (3.5-5.1); Sodium 137 mmol/L (136-145)
[2020-07-29] MEDS ORDERED: Ferrous Sulfate 325 MG TAB PO SCH (08:00)
[2020-07-29] MEDS ORDERED: Amiodarone 200 MG TAB PO SCH (09:00)
[2020-07-29] MEDS ORDERED: Furosemide 40 MG TAB PO SCH (09:00)
[2020-07-29 11:32] VITALS: TEMP 97.7
[2020-07-29 12:47] VITALS: BP 95/46
== END 2020-07-29 14:47 | disposition home or self-care (01) ==
LOC: ERS 09:55 → INTOOBSV 12:52 → IMCU/EMU 12:52
PROVIDERS: ADMIT Student in an Organized Health Care Education/Training Program; ATTEND Student in an Organized Health Care Education/Training Program
DX: I13.0 Hypertensive heart and chronic kidney disease with heart failure and stage 1 through stage 4 chronic kidney disease, or unspecified chronic kidney disease (principal); N18.32 Chronic kidney disease, stage 3b; I50.31 Acute diastolic (congestive) heart failure; D63.1 Anemia in chronic kidney disease; E87.6 Hypokalemia; I48.91 Unspecified atrial fibrillation; E78.5 Hyperlipidemia, unspecified; Z87.891 Personal history of nicotine dependence; Z79.01 Long term (current) use of anticoagulants; Z79.899 Other long term (current) drug therapy; Z95.1 Presence of aortocoronary bypass graft; Z95.2 Presence of prosthetic heart valve
CPT/HCPCS: 36415; 36430; 71045; 80048; 80053; 81003; 82274; 82550; 83735; 83880; 84100; 84484; 85025; 86850; 86900; 86901; 93005; J1940; P9016

== ENCOUNTER 2020-08-15 13:20 | Day surgery (SDC) | payer BC ==
[2020-08-15] MEDS ORDERED: Acetaminophen 325 MG TAB PO SCH ×2 (14:00→15:00)
[2020-08-15 20:20] VITALS: BP 108/63; TEMP 97.9
== END 2020-08-15 20:23 | disposition home or self-care (01) ==
LOC: ONC/OP 13:20 → ONC 18:04 → ONC/OP 20:23
PROVIDERS: ATTEND Internal Medicine
PROC: 30233N1 Transfusion of Nonautologous Red Blood Cells into Peripheral Vein, Percutaneous Approach (ICD-10-PCS; principal; 2020-08-15)
DX: D64.9 Anemia, unspecified (principal)
CPT/HCPCS: 36430; 86850; 86900; 86901; P9016

== ENCOUNTER 2020-08-16 17:06 | Emergency (ER) | payer BC, MEDICARE ==
[2020-08-16 20:42] LABS: #Eosinphils 0.1 thou/uL (0.0-0.7); #Lymphocytes 0.7 thou/uL (1.20-3.40); #Monocytes 0.8 thou/uL (0.11-0.59); #Neutrophils 4.8 thou/uL (1.40-6.50); %Basophils 0.2 % (0.0-1.0); %Eosinophils 1.9 % (0.0-10.0); %Lymphocytes 10.6 % (21.0-51.0); %Monocytes 11.9 % (0.0-10.0); %Neutrophils 75.3 % (42.0-75.0); Hemoglobin 9.6 g/dL (12.0-16.0); Mean Corpuscular HGB CONC 32.6 g/dL (32.0-36.0); Mean Corpuscular Hemoglobin 29.2 pg (27.0-31.0); Mean Corpuscular Volume 89.8 fL (78.0-98.0); Mean Platelet Volume 9.1 fL (7.4-10.4); Platelet Count 180 thou/uL (130-400); RBC Distribution Width 14.6 % (11.5-14.5); Red Blood Cell (RBC) Count 3.28 mill/uL (4.20-5.40); White Blood Cell (WBC) Count 6.3 thou/uL (4.8-10.8)
[2020-08-16 21:04] LABS: ALT (SGPT) 29 U/L (8-55); AST (SGOT) 35 U/L (5-34); Albumin 3.4 g/dL (3.4-4.8); Alkaline Phosphatase 83 U/L (40-110); Anion Gap 14 mmol/L (10-20); BUN (Urea Nitrogen) 50 mg/dL (9.8-20.1); Bilirubin, Total 1.4 mg/dL (0.2-1.2); CK (CPK) 68 U/L (29-168); Calc. Creatinine Clearance 0 mL/min (70-130); Calcium 8.8 mg/dL (7.8-10.44); Carbon Dioxide 24 mmol/L (23-31); Chloride 107 mmol/L (98-107); Glucose 116 mg/dL (83-110); Magnesium 2.7 mg/dL (1.6-2.6); Potassium 3.9 mmol/L (3.5-5.1); Protein, Total 5.4 g/dL (5.8-8.1); Sodium 141 mmol/L (136-145)
[2020-08-16 23:18] LABS: Bilirubin Negative (Negative); Blood, Urine Negative (Negative); Clarity Clear (Clear); Glucose, Urine (Dipstick) Normal (Negative); Ketone, Urine Negative (Negative); Leukocyte Negative Leu/uL (Negative); Nitrite Negative (Negative); Protein, Urine (Dipstick) 20 mg/dL (Neg-Trace); Specific Gravity, Urine 1.016 (1.002-1.036); Urobilinogen Normal mg/dL (Less than 2)
== END 2020-08-16 23:47 | disposition home or self-care (01) ==
LOC: ERS 17:06
DX: J81.1 Chronic pulmonary edema (principal); I11.0 Hypertensive heart disease with heart failure; I50.9 Heart failure, unspecified; I48.91 Unspecified atrial fibrillation; Z87.891 Personal history of nicotine dependence
CPT/HCPCS: 36415; 71045; 80053; 81003; 82550; 83735; 84484; 85025; 93005

== ENCOUNTER 2020-08-26 08:24 | Day surgery (SDC) | payer MEDICARE ==
[2020-08-26] MEDS ORDERED: diphenhydrAMINE 25 MG CAP PO SCH (08:45)
[2020-08-26] MEDS ORDERED: Acetaminophen 500 MG TAB PO SCH (08:45)
[2020-08-26] MEDS ORDERED: Sodium Chloride 0.9% 20 ML ONE (09:08)
[2020-08-26 14:10] VITALS: TEMP 97.8
[2020-08-26 14:12] VITALS: BP 96/58
== END 2020-08-26 14:12 | disposition home or self-care (01) ==
LOC: ONC/OP 08:24
PROVIDERS: ATTEND Internal Medicine Hematology & Oncology
PROC: 30233N1 Transfusion of Nonautologous Red Blood Cells into Peripheral Vein, Percutaneous Approach (ICD-10-PCS; principal; 2020-08-26)
DX: D64.9 Anemia, unspecified (principal); D69.6 Thrombocytopenia, unspecified
CPT/HCPCS: 36430; 86850; 86900; 86901; P9016; Q0163

== ENCOUNTER 2020-09-27 19:47 | Emergency (ER) | payer BC, MEDICARE ==
[2020-09-27 20:22] LABS: #Eosinphils 0.2 thou/uL (0.0-0.7); #Lymphocytes 0.7 thou/uL (1.20-3.40); #Monocytes 0.7 thou/uL (0.11-0.59); #Neutrophils 3.6 thou/uL (1.40-6.50); %Basophils 0.2 % (0.0-1.0); %Eosinophils 3.3 % (0.0-10.0); %Lymphocytes 13.3 % (21.0-51.0); %Monocytes 13.5 % (0.0-10.0); %Neutrophils 69.7 % (42.0-75.0); Hemoglobin 8.7 g/dL (12.0-16.0); Mean Corpuscular HGB CONC 32.7 g/dL (32.0-36.0); Mean Corpuscular Hemoglobin 30.4 pg (27.0-31.0); Mean Platelet Volume 8.4 fL (7.4-10.4); Platelet Count 179 thou/uL (130-400); RBC Distribution Width 15.8 % (11.5-14.5); Red Blood Cell (RBC) Count 2.87 mill/uL (4.20-5.40); White Blood Cell (WBC) Count 5.2 thou/uL (4.8-10.8)
[2020-09-27 20:42] LABS: ALT (SGPT) 19 U/L (8-55); AST (SGOT) 27 U/L (5-34); Albumin 3.5 g/dL (3.4-4.8); Alkaline Phosphatase 92 U/L (40-110); Anion Gap 16 mmol/L (10-20); BUN (Urea Nitrogen) 39 mg/dL (9.8-20.1); Bilirubin, Total 0.8 mg/dL (0.2-1.2); Calc. Creatinine Clearance 0 mL/min (70-130); Calcium 8.5 mg/dL (7.8-10.44); Carbon Dioxide 21 mmol/L (23-31); Chloride 107 mmol/L (98-107); Globulin 2.3 g/dL (2.4-3.5); Glucose 95 mg/dL (83-110); Potassium 3.7 mmol/L (3.5-5.1); Protein, Total 5.8 g/dL (5.8-8.1); Sodium 140 mmol/L (136-145)
[2020-09-27 21:38] LABS: Bilirubin Negative (Negative); Blood, Urine 3+ (Negative); Clarity Clear (Clear); Glucose, Urine (Dipstick) Normal (Negative); Ketone, Urine Negative (Negative); Leukocyte 250 Leu/uL (Negative); Nitrite Negative (Negative); Protein, Urine (Dipstick) Negative (Neg-Trace); RBC/HPF Greater than 50 HPF (0-3); Specific Gravity, Urine 1.012 (1.002-1.036); Squamous Epithelial 0-3 HPF (0-3); Urobilinogen Normal mg/dL (Less than 2); WBC/HPF 21-50 HPF (0-3)
[2020-09-27 21:40] LABS: Bacteria/HPF Rare-Few HPF (None Seen)
== END 2020-09-27 23:50 | disposition home or self-care (01) ==
LOC: ERS 19:47
DX: I13.0 Hypertensive heart and chronic kidney disease with heart failure and stage 1 through stage 4 chronic kidney disease, or unspecified chronic kidney disease (principal); I50.9 Heart failure, unspecified; N18.4 Chronic kidney disease, stage 4 (severe); J90 Pleural effusion, not elsewhere classified; N39.0 Urinary tract infection, site not specified; I48.91 Unspecified atrial fibrillation; Z87.891 Personal history of nicotine dependence
CPT/HCPCS: 36415; 70450; 71045; 72125; 80053; 81003; 81015; 83880; 84443; 84484; 85025; 93005

== ENCOUNTER 2021-04-21 15:06 | Day surgery (SDC) | payer MEDICARE ==
[2021-04-21] MEDS ORDERED: diphenhydrAMINE 25 MG CAP PO SCH (17:15)
[2021-04-21] MEDS ORDERED: Acetaminophen 500 MG TAB PO SCH (17:15)
[2021-04-21 17:17] VITALS: BMI 23.2
[2021-04-22 03:42] VITALS: BP 112/60; TEMP 97.6
[2021-04-22 05:10] LABS: Band 8 % (5-11); Eosinophils 6 % (0-10); Hemoglobin 9.6 g/dL (12.0-16.0); Lymphocytes 18 % (21-51); MDiff Complete? YES; Mean Corpuscular HGB CONC 31.9 g/dL (32.0-36.0); Mean Corpuscular Hemoglobin 26.8 pg (27.0-31.0); Mean Corpuscular Volume 84.2 fL (78.0-98.0); Mean Platelet Volume 9.1 fL (7.4-10.4); Monocytes 9 % (0-10); Neutrophil 59 % (42-75); Platelet Count 194 thou/uL (130-400); RBC Distribution Width 16.5 % (11.5-14.5); Red Blood Cell (RBC) Count 3.56 mill/uL (4.20-5.40); White Blood Cell (WBC) Count 5.4 thou/uL (4.8-10.8)
== END 2021-04-22 05:15 | disposition home or self-care (01) ==
LOC: SDC 15:06 → SURG A 15:11 → ONC/OP 04-22 05:15
PROVIDERS: ATTEND Internal Medicine
PROC: 30233N1 Transfusion of Nonautologous Red Blood Cells into Peripheral Vein, Percutaneous Approach (ICD-10-PCS; principal; 2021-04-21)
DX: D64.9 Anemia, unspecified (principal)
CPT/HCPCS: 36415; 36430; 85025; 86850; 86870; 86900; 86901; 86922; 96365; 96366; P9016

== ENCOUNTER 2021-05-01 16:55 | Outpatient (CLI) | payer MEDICARE | END 2021-05-01 16:56 | disposition home or self-care (01) | LOC: LABBT 16:55 | PROVIDERS: ATTEND Internal Medicine Cardiovascular Disease | DX: Z01.818 Encounter for other preprocedural examination (principal); I48.19 Other persistent atrial fibrillation; D64.9 Anemia, unspecified; Z92.29 Personal history of other drug therapy; Z20.822 Contact with and (suspected) exposure to COVID-19 | CPT/HCPCS: 80053; 81003; 85027; 85610; 85730; 86850; 86900; 86901; 86922; 93005; 93010; U0003; U0005 ==

== ENCOUNTER 2021-05-12 09:38 | Inpatient (IN) | payer MEDICARE ==
[~2021-05-12 09:38] MED LIST: Iopamidol 370 76% 100 ML VIAL ONE
[2021-05-12 11:02] LABS: INR-International Normal Ratio 1.6; Prothrombin Time 19.7 sec (12.0-14.7)
[2021-05-12 11:06] LABS: Hemoglobin 5.2 g/dL (12.0-16.0)
[2021-05-12 11:08] LABS: White Blood Cell (WBC) Count 5.1 thou/uL (4.8-10.8)
[2021-05-12 11:09] LABS: ALT (SGPT) 12 U/L (8-55); AST (SGOT) 24 U/L (5-34); Albumin 3.4 g/dL (3.4-4.8); Alkaline Phosphatase 50 U/L (40-110); Anion Gap 19 mmol/L (10-20); BUN (Urea Nitrogen) 80 mg/dL (9.8-20.1); Bilirubin, Total 1.4 mg/dL (0.2-1.2); Calc. Creatinine Clearance 0 mL/min (70-130); Calcium 9.7 mg/dL (7.8-10.44); Carbon Dioxide 23 mmol/L (23-31); Chloride 103 mmol/L (98-107); Globulin 2.3 g/dL (2.4-3.5); Glucose 122 mg/dL (83-110); Lipase 27 U/L (8-78); Potassium 4.5 mmol/L (3.5-5.1); Protein, Total 5.7 g/dL (5.8-8.1); Red Blood Cell (RBC) Count 1.98 mill/uL (4.20-5.40); Sodium 140 mmol/L (136-145)
[2021-05-12 11:10] LABS: Mean Corpuscular HGB CONC 31.2 g/dL (32.0-36.0); Mean Corpuscular Hemoglobin 26.4 pg (27.0-31.0); Mean Corpuscular Volume 84.5 fL (78.0-98.0); Platelet Count 163 thou/uL (130-400); RBC Distribution Width 18.9 % (11.5-14.5)
[2021-05-12 11:11] LABS: %Lymphocytes 14.9 % (21.0-51.0); %Monocytes 13.5 % (0.0-10.0); %Neutrophils 70.3 % (42.0-75.0); Mean Platelet Volume 9.6 fL (7.4-10.4)
[2021-05-12 11:12] LABS: %Basophils 0.3 % (0.0-1.0); %Eosinophils 0.9 % (0.0-10.0)
[2021-05-12 11:13] LABS: #Lymphocytes 0.8 thou/uL (1.20-3.40); #Monocytes 0.7 thou/uL (0.11-0.59); #Neutrophils 3.6 thou/uL (1.40-6.50)
[2021-05-12 11:59] LABS: Hypochromia SLIGHT = 6-15 cells (100X) (0-5/hpf); Ovalocytes SLIGHT = 2-5 cells (100X) (0-1/hpf); Polychromasia SLIGHT = 2-3 cells (100X) (0-2/hpf)
[2021-05-12 12:00] LABS: Elliptocytes SLIGHT = 2-5 cells (100X) (0-1/hpf)
[2021-05-12 12:15] LABS: Bacteria/HPF None Seen HPF (None Seen); Bilirubin Negative (Negative); Blood, Urine Trace (Negative); Clarity Clear (Clear); Glucose, Urine (Dipstick) Normal (Negative); Ketone, Urine Negative (Negative); Leukocyte Negative Leu/uL (Negative); Nitrite Negative (Negative); Protein, Urine (Dipstick) Negative (Neg-Trace); RBC/HPF 0-3 HPF (0-3); Specific Gravity, Urine 1.016 (1.002-1.036); Squamous Epithelial 0-3 HPF (0-3); Urobilinogen Normal mg/dL (Less than 2); WBC/HPF 0-3 HPF (0-3)
[2021-05-12] MEDS ORDERED: Pantoprazole 40 MG VIAL ONE (12:22)
[2021-05-12] MEDS ORDERED: Senokot S 8.6-50 MG TAB PO PRN (13:29)
[2021-05-12] MEDS ORDERED: Ondansetron ODT 4 MG TAB PO PRN (13:29)
[2021-05-12] MEDS ORDERED: Acetaminophen 325 MG TAB PO PRN (13:29)
[2021-05-12] MEDS ORDERED: Calcium Carbonate 500 MG ChewTAB PO PRN (13:29)
[2021-05-12 14:17] LABS: Magnesium 2.4 mg/dL (1.6-2.6); Phosphorus 4.5 mg/dL (2.3-4.7)
[2021-05-12 14:30] LABS: SARS-CoV-2 NAA Rapid Test Not Detected (NotDetected)
[2021-05-12] MEDS ORDERED: Furosemide 40 MG/4 ML VIAL SLOW IVP SCH (17:00)
[2021-05-12] MEDS: Atorvastatin Calcium 10 MG TAB PO SCH (20:30)
[2021-05-13 03:53] LABS: Anion Gap 14 mmol/L (10-20); BUN (Urea Nitrogen) 76 mg/dL (9.8-20.1); Calc. Creatinine Clearance 19 mL/min (70-130); Carbon Dioxide 25 mmol/L (23-31); Chloride 104 mmol/L (98-107); Glucose 110 mg/dL (83-110); Potassium 3.8 mmol/L (3.5-5.1); Sodium 139 mmol/L (136-145)
[2021-05-13 04:17] LABS: Anisocytosis SLIGHT = 6-15 cells (100X) (0-5/hpf); Elliptocytes SLIGHT = 2-5 cells (100X) (0-1/hpf); Hemoglobin 7.6 g/dL (12.0-16.0); MDiff Complete? YES; Mean Corpuscular HGB CONC 32.4 g/dL (32.0-36.0); Mean Corpuscular Volume 89.3 fL (78.0-98.0); Mean Platelet Volume 9.4 fL (7.4-10.4); Platelet Count 156 thou/uL (130-400); Platelet Morphology Comment Appears Decreased; Polychromasia SLIGHT = 2-3 cells (100X) (0-2/hpf); RBC Distribution Width 17.9 % (11.5-14.5); Red Blood Cell (RBC) Count 2.61 mill/uL (4.20-5.40)
[2021-05-13] MEDS: Ferrous Sulfate 325 MG TAB PO SCH (07:36)
[2021-05-13] MEDS: Polyethylene Glycol 3350 17 GM Packet PO SCH (07:37)
[2021-05-13] MEDS: Amiodarone 200 MG TAB PO SCH (07:37)
[2021-05-13] MEDS ORDERED: Furosemide 40 MG/4 ML VIAL SLOW IVP SCH (09:00)
[2021-05-13 10:23] LABS: Hemoglobin 7.6 g/dL (12.0-16.0)
[2021-05-13] MEDS: Atorvastatin Calcium 10 MG TAB PO SCH (21:03)
[2021-05-14 03:42] LABS: Hemoglobin 7.7 g/dL (12.0-16.0)
[2021-05-14 04:29] LABS: Anion Gap 9 mmol/L (10-20); BUN (Urea Nitrogen) 60 mg/dL (9.8-20.1); Calc. Creatinine Clearance 21 mL/min (70-130); Carbon Dioxide 29 mmol/L (23-31); Chloride 104 mmol/L (98-107); Glucose 102 mg/dL (83-110); Potassium 3.2 mmol/L (3.5-5.1); Sodium 139 mmol/L (136-145)
[2021-05-14] MEDS ORDERED: Potassium Chloride 20 MEQ TAB PO SCH (06:30)
[2021-05-14] MEDS: Bumetanide 1 MG TAB PO SCH (08:04)
[2021-05-14] MEDS: Ferrous Sulfate 325 MG TAB PO SCH (08:04)
[2021-05-14] MEDS: Polyethylene Glycol 3350 17 GM Packet PO SCH (08:04)
[2021-05-14] MEDS: Amiodarone 200 MG TAB PO SCH (08:04)
[2021-05-14] MEDS: Melatonin 3 MG TAB PO SCH (16:37)
[2021-05-14] MEDS: Atorvastatin Calcium 10 MG TAB PO SCH (20:39)
[2021-05-15 04:51] LABS: Hemoglobin 7.7 g/dL (12.0-16.0)
[2021-05-15 05:11] LABS: Anion Gap 12 mmol/L (10-20); BUN (Urea Nitrogen) 41 mg/dL (9.8-20.1); Calc. Creatinine Clearance 23 mL/min (70-130); Calcium 8.6 mg/dL (7.8-10.44); Carbon Dioxide 29 mmol/L (23-31); Chloride 106 mmol/L (98-107); Glucose 111 mg/dL (83-110); Potassium 3.7 mmol/L (3.5-5.1); Sodium 143 mmol/L (136-145)
[2021-05-15] MEDS: Ferrous Sulfate 325 MG TAB PO SCH (09:23)
[2021-05-15] MEDS: Bumetanide 1 MG TAB PO SCH (09:23)
[2021-05-15] MEDS: Amiodarone 200 MG TAB PO SCH (09:24)
[2021-05-15] MEDS: Polyethylene Glycol 3350 17 GM Packet PO SCH (09:24)
[2021-05-15] MEDS: Melatonin 3 MG TAB PO SCH (17:35)
[2021-05-15] MEDS: Atorvastatin Calcium 10 MG TAB PO SCH (20:12)
[2021-05-16 05:15] LABS: Hemoglobin 7.7 g/dL (12.0-16.0)
[2021-05-16 05:32] LABS: Anion Gap 10 mmol/L (10-20); BUN (Urea Nitrogen) 39 mg/dL (9.8-20.1); Calc. Creatinine Clearance 22 mL/min (70-130); Carbon Dioxide 32 mmol/L (23-31); Chloride 105 mmol/L (98-107); Glucose 121 mg/dL (83-110); Potassium 3.8 mmol/L (3.5-5.1); Sodium 143 mmol/L (136-145)
[2021-05-16] MEDS: Polyethylene Glycol 3350 17 GM Packet PO SCH (08:21)
[2021-05-16] MEDS: Ferrous Sulfate 325 MG TAB PO SCH (08:22)
[2021-05-16] MEDS: Amiodarone 200 MG TAB PO SCH (08:22)
[2021-05-16] MEDS: Bumetanide 1 MG TAB PO SCH (08:23)
[2021-05-16] MEDS ORDERED: Ergocalciferol 1.25 MG(50,000 UNITS) CAP PO SCH (09:00)
[2021-05-16] MEDS: Melatonin 3 MG TAB PO SCH (18:18)
[2021-05-16] MEDS: Apixaban 2.5 MG TAB PO SCH (20:09)
[2021-05-16] MEDS: Atorvastatin Calcium 10 MG TAB PO SCH (20:10)
[2021-05-17 04:39] LABS: Hemoglobin 7.7 g/dL (12.0-16.0)
[2021-05-17 05:06] LABS: Anion Gap 10 mmol/L (10-20); BUN (Urea Nitrogen) 31 mg/dL (9.8-20.1); Calc. Creatinine Clearance 22 mL/min (70-130); Calcium 8.8 mg/dL (7.8-10.44); Carbon Dioxide 31 mmol/L (23-31); Chloride 102 mmol/L (98-107); Glucose 112 mg/dL (83-110); Potassium 4.2 mmol/L (3.5-5.1); Sodium 139 mmol/L (136-145)
[2021-05-17] MEDS: Polyethylene Glycol 3350 17 GM Packet PO SCH (09:48)
[2021-05-17] MEDS: Amiodarone 200 MG TAB PO SCH (09:48)
[2021-05-17] MEDS: Bumetanide 1 MG TAB PO SCH (09:49)
[2021-05-17] MEDS: Apixaban 2.5 MG TAB PO SCH ×2 (09:49→20:20)
[2021-05-17] MEDS ORDERED: Furosemide 20 MG/2 ML VIAL SLOW IVP SCH (10:45)
[2021-05-17] MEDS ORDERED: Simethicone Chewable 80 MG TAB PO PRN (11:04)
[2021-05-17] MEDS: Atorvastatin Calcium 10 MG TAB PO SCH (20:20)
[2021-05-17] MEDS: Melatonin 3 MG TAB PO SCH (20:20)
[2021-05-18 02:43] LABS: Hemoglobin 10.3 g/dL (12.0-16.0)
[2021-05-18 03:23] LABS: Anion Gap 12 mmol/L (10-20); BUN (Urea Nitrogen) 29 mg/dL (9.8-20.1); Calc. Creatinine Clearance 21 mL/min (70-130); Calcium 8.8 mg/dL (7.8-10.44); Carbon Dioxide 29 mmol/L (23-31); Chloride 101 mmol/L (98-107); Glucose 110 mg/dL (83-110); Potassium 4.2 mmol/L (3.5-5.1); Sodium 138 mmol/L (136-145)
[2021-05-18] MEDS: Amiodarone 200 MG TAB PO SCH (09:23)
[2021-05-18] MEDS: Bumetanide 1 MG TAB PO SCH (09:24)
[2021-05-18] MEDS: Polyethylene Glycol 3350 17 GM Packet PO SCH (09:24)
[2021-05-18] MEDS: Apixaban 2.5 MG TAB PO SCH (09:24)
[2021-05-18 13:40] VITALS: BP 104/56
[2021-05-18 14:33] VITALS: BMI 21.2
[2021-05-18] MEDS: Melatonin 3 MG TAB PO SCH (16:48)
[2021-05-18 17:35] VITALS: TEMP 98.5
== END 2021-05-18 17:10 | disposition home or self-care (01) | DRG 377 ==
LOC: ERS 09:38 → IMCU/EMU 12:21 → 2NO 05-14 15:16
PROVIDERS: ADMIT Student in an Organized Health Care Education/Training Program; ATTEND Student in an Organized Health Care Education/Training Program
PROC: 30233N1 Transfusion of Nonautologous Red Blood Cells into Peripheral Vein, Percutaneous Approach (ICD-10-PCS; principal; 2021-05-12)
DX: K31.811 Angiodysplasia of stomach and duodenum with bleeding (principal); I50.33 Acute on chronic diastolic (congestive) heart failure; D62 Acute posthemorrhagic anemia; N18.4 Chronic kidney disease, stage 4 (severe); I13.0 Hypertensive heart and chronic kidney disease with heart failure and stage 1 through stage 4 chronic kidney disease, or unspecified chronic kidney disease; Z20.822 Contact with and (suspected) exposure to COVID-19; D63.1 Anemia in chronic kidney disease; K59.00 Constipation, unspecified; I95.9 Hypotension, unspecified; G47.33 Obstructive sleep apnea (adult) (pediatric); I48.0 Paroxysmal atrial fibrillation; I08.3 Combined rheumatic disorders of mitral, aortic and tricuspid valves; M62.838 Other muscle spasm; I27.81 Cor pulmonale (chronic); Z95.1 Presence of aortocoronary bypass graft; Z87.891 Personal history of nicotine dependence; Z79.899 Other long term (current) drug therapy; Z79.01 Long term (current) use of anticoagulants; Z95.2 Presence of prosthetic heart valve; Z95.818 Presence of other cardiac implants and grafts
CPT/HCPCS: 36415; 36430; 71045; 71275; 74174; 80048; 80053; 81003; 81015; 83690; 83735; 83880; 84100; 84484; 85014; 85018; 85025; 85610; 86850; 86900; 86901; 86922; 93005; C9113; J1940; P9016; Q9967; U0002

== ENCOUNTER 2021-05-25 10:48 | Emergency (ER) | payer MEDICARE, BC ==
[2021-05-25 11:34] LABS: #Eosinphils 0.2 thou/uL (0.0-0.7); #Lymphocytes 0.5 thou/uL (1.20-3.40); #Monocytes 0.5 thou/uL (0.11-0.59); #Neutrophils 2.7 thou/uL (1.40-6.50); %Lymphocytes 13.6 % (21.0-51.0); %Monocytes 12.8 % (0.0-10.0); %Neutrophils 69.6 % (42.0-75.0); Hemoglobin 8.2 g/dL (12.0-16.0); Mean Corpuscular HGB CONC 30.8 g/dL (32.0-36.0); Mean Corpuscular Hemoglobin 27.4 pg (27.0-31.0); Mean Corpuscular Volume 89.1 fL (78.0-98.0); Mean Platelet Volume 8.6 fL (7.4-10.4); Platelet Count 191 thou/uL (130-400); RBC Distribution Width 17.7 % (11.5-14.5); Red Blood Cell (RBC) Count 3.01 mill/uL (4.20-5.40); White Blood Cell (WBC) Count 3.9 thou/uL (4.8-10.8)
[2021-05-25 11:55] LABS: ALT (SGPT) 15 U/L (8-55); AST (SGOT) 25 U/L (5-34); Albumin 3.6 g/dL (3.4-4.8); Alkaline Phosphatase 86 U/L (40-110); Anion Gap 14 mmol/L (10-20); BUN (Urea Nitrogen) 64 mg/dL (9.8-20.1); Bilirubin, Total 1.3 mg/dL (0.2-1.2); Calc. Creatinine Clearance 0 mL/min (70-130); Calcium 10.2 mg/dL (7.8-10.44); Carbon Dioxide 26 mmol/L (23-31); Chloride 101 mmol/L (98-107); Globulin 2.9 g/dL (2.4-3.5); Glucose 89 mg/dL (83-110); Potassium 3.9 mmol/L (3.5-5.1); Protein, Total 6.5 g/dL (5.8-8.1); Sodium 137 mmol/L (136-145)
== END 2021-05-25 13:25 | disposition home or self-care (01) ==
LOC: ERS 10:48
DX: D64.9 Anemia, unspecified (principal); I13.0 Hypertensive heart and chronic kidney disease with heart failure and stage 1 through stage 4 chronic kidney disease, or unspecified chronic kidney disease; N18.4 Chronic kidney disease, stage 4 (severe); I50.9 Heart failure, unspecified; Z87.891 Personal history of nicotine dependence; Z79.899 Other long term (current) drug therapy
CPT/HCPCS: 36415; 80053; 85025; 86850; 86900; 86901; 99284

== ENCOUNTER 2021-05-26 10:31 | Day surgery (SDC) | payer MEDICARE, BC ==
[2021-05-26] MEDS ORDERED: Acetaminophen 500 MG TAB ONE (10:56)
[2021-05-26 11:37] VITALS: TEMP 97.5
[2021-05-26 13:51] VITALS: BP 117/56
== END 2021-05-26 13:52 | disposition home or self-care (01) ==
LOC: ONC/OP 10:31
PROVIDERS: ATTEND Internal Medicine Hematology & Oncology
DX: D64.9 Anemia, unspecified (principal); D50.0 Iron deficiency anemia secondary to blood loss (chronic); N18.32 Chronic kidney disease, stage 3b; D63.1 Anemia in chronic kidney disease
CPT/HCPCS: 36415; 36430; 82728; 83540; 83550; 86850; 86900; 86901; 86922; P9016

== ENCOUNTER 2021-06-28 13:09 | Inpatient (IN) | payer MEDICARE, BC ==
[2021-06-28 13:48] LABS: #Eosinphils 0.2 thou/uL (0.0-0.7); #Lymphocytes 0.5 thou/uL (1.20-3.40); #Monocytes 0.5 thou/uL (0.11-0.59); #Neutrophils 3.2 thou/uL (1.40-6.50); %Eosinophils 4.2 % (0.0-10.0); %Lymphocytes 11.2 % (21.0-51.0); %Neutrophils 72.6 % (42.0-75.0); Hemoglobin 6.3 g/dL (12.0-16.0); Mean Corpuscular HGB CONC 30.3 g/dL (32.0-36.0); Mean Corpuscular Hemoglobin 29.4 pg (27.0-31.0); Mean Corpuscular Volume 97.1 fL (78.0-98.0); Platelet Count 188 thou/uL (130-400); RBC Distribution Width 17.2 % (11.5-14.5); Red Blood Cell (RBC) Count 2.13 mill/uL (4.20-5.40); White Blood Cell (WBC) Count 4.4 thou/uL (4.8-10.8)
[2021-06-28 14:09] LABS: ALT (SGPT) 12 U/L (8-55); AST (SGOT) 22 U/L (5-34); Albumin 3.4 g/dL (3.4-4.8); Alkaline Phosphatase 66 U/L (40-110); Anion Gap 15 mmol/L (10-20); BUN (Urea Nitrogen) 77 mg/dL (9.8-20.1); Calc. Creatinine Clearance 0 mL/min (70-130); Calcium 10.3 mg/dL (7.8-10.44); Carbon Dioxide 25 mmol/L (23-31); Chloride 102 mmol/L (98-107); Globulin 2.4 g/dL (2.4-3.5); Glucose 107 mg/dL (83-110); Potassium 3.7 mmol/L (3.5-5.1); Protein, Total 5.8 g/dL (5.8-8.1); Sodium 138 mmol/L (136-145)
[2021-06-28 14:17] LABS: Bilirubin Negative (Negative); Blood, Urine Negative (Negative); Clarity Clear (Clear); Glucose, Urine (Dipstick) Normal (Negative); Ketone, Urine Negative (Negative); Leukocyte 25 Leu/uL (Negative); Nitrite Negative (Negative); Protein, Urine (Dipstick) Negative (Neg-Trace); RBC/HPF None Seen HPF (0-3); Squamous Epithelial None Seen HPF (0-3); Urobilinogen Normal mg/dL (Less than 2); pH, Urine 5.5 (5.0-9.0)
[2021-06-28 14:18] LABS: Bacteria/HPF 1+ HPF (None Seen)
[2021-06-28] MEDS ORDERED: cefTRIAXone\\ROCEPHIN 1 GM VIAL ONE (15:17)
[2021-06-28] MEDS ORDERED: Pantoprazole 40 MG VIAL ONE (15:46)
[2021-06-28] MEDS ORDERED: Acetaminophen 325 MG TAB PO PRN (16:30)
[2021-06-28] MEDS ORDERED: Docusate 100 MG CAP PO PRN (16:34)
[2021-06-28] MEDS ORDERED: Ergocalciferol 1.25 MG(50,000 UNITS) CAP PO SCH (18:00)
[2021-06-28 20:16] VITALS: BMI 21.4
[2021-06-28] MEDS: Atorvastatin Calcium 10 MG TAB PO SCH (20:34)
[2021-06-28] MEDS: Pantoprazole 40 MG VIAL IVP SCH (20:34)
[2021-06-28 23:22] LABS: Hemoglobin 7.1 g/dL (12.0-16.0)
[2021-06-28 23:37] LABS: SARS-CoV-2 PCR by NAA Not Detected (NotDetected)
[2021-06-29 04:08] LABS: #Eosinphils 0.3 thou/uL (0.0-0.7); #Lymphocytes 0.5 thou/uL (1.20-3.40); #Monocytes 0.6 thou/uL (0.11-0.59); #Neutrophils 3.4 thou/uL (1.40-6.50); %Eosinophils 5.3 % (0.0-10.0); %Lymphocytes 10.8 % (21.0-51.0); %Monocytes 13.1 % (0.0-10.0); %Neutrophils 70.8 % (42.0-75.0); Hemoglobin 7.2 g/dL (12.0-16.0); Mean Corpuscular HGB CONC 30.2 g/dL (32.0-36.0); Mean Corpuscular Hemoglobin 29.2 pg (27.0-31.0); Mean Corpuscular Volume 96.5 fL (78.0-98.0); Mean Platelet Volume 7.7 fL (7.4-10.4); Platelet Count 166 thou/uL (130-400); RBC Distribution Width 16.8 % (11.5-14.5); Red Blood Cell (RBC) Count 2.47 mill/uL (4.20-5.40); White Blood Cell (WBC) Count 4.9 thou/uL (4.8-10.8)
[2021-06-29 04:33] LABS: Anion Gap 10 mmol/L (10-20); BUN (Urea Nitrogen) 73 mg/dL (9.8-20.1); Calc. Creatinine Clearance 20 mL/min (70-130); Calcium 9.5 mg/dL (7.8-10.44); Carbon Dioxide 25 mmol/L (23-31); Chloride 106 mmol/L (98-107); Glucose 107 mg/dL (83-110); Potassium 3.6 mmol/L (3.5-5.1); Sodium 137 mmol/L (136-145)
[2021-06-29] MEDS: Pantoprazole 40 MG VIAL IVP SCH ×2 (08:31→21:20)
[2021-06-29] MEDS: Amiodarone 200 MG TAB PO SCH (08:31)
[2021-06-29] MEDS ORDERED: Bumetanide 1 MG TAB PO SCH ×2 (09:00→12:30)
[2021-06-29 17:02] LABS: Hemoglobin 9.3 g/dL (12.0-16.0)
[2021-06-29] MEDS: Atorvastatin Calcium 10 MG TAB PO SCH (21:19)
[2021-06-30 04:27] LABS: Hemoglobin 8.5 g/dL (12.0-16.0); Platelet Count 168 thou/uL (130-400)
[2021-06-30 07:21] LABS: Anion Gap 10 mmol/L (10-20); BUN (Urea Nitrogen) 54 mg/dL (9.8-20.1); Calc. Creatinine Clearance 20 mL/min (70-130); Calcium 9.1 mg/dL (7.8-10.44); Carbon Dioxide 26 mmol/L (23-31); Chloride 106 mmol/L (98-107); Glucose 119 mg/dL (83-110); Potassium 3.8 mmol/L (3.5-5.1); Sodium 138 mmol/L (136-145)
[2021-06-30] MEDS ORDERED: Bumetanide 1 MG TAB PO SCH (09:00)
[2021-06-30] MEDS: Amiodarone 200 MG TAB PO SCH (09:11)
[2021-06-30] MEDS: Pantoprazole 40 MG VIAL IVP SCH (09:12)
[2021-06-30 12:23] LABS: Hemoglobin 9.1 g/dL (12.0-16.0)
[2021-06-30 15:12] VITALS: BP 112/56; TEMP 97.9
== END 2021-06-30 15:40 | disposition home or self-care (01) | DRG 378 ==
LOC: ERS 13:09 → ERHOLD 15:55 → 2NO 19:05
PROVIDERS: ADMIT Family Medicine; ATTEND Family Medicine
PROC: 30233N1 Transfusion of Nonautologous Red Blood Cells into Peripheral Vein, Percutaneous Approach (ICD-10-PCS; principal; 2021-06-28)
DX: K55.21 Angiodysplasia of colon with hemorrhage (principal); D62 Acute posthemorrhagic anemia; I13.0 Hypertensive heart and chronic kidney disease with heart failure and stage 1 through stage 4 chronic kidney disease, or unspecified chronic kidney disease; I50.32 Chronic diastolic (congestive) heart failure; R64 Cachexia; N39.0 Urinary tract infection, site not specified; Z20.822 Contact with and (suspected) exposure to COVID-19; N18.30 Chronic kidney disease, stage 3 unspecified; R94.31 Abnormal electrocardiogram [ECG] [EKG]; I48.0 Paroxysmal atrial fibrillation; D63.1 Anemia in chronic kidney disease; Z79.899 Other long term (current) drug therapy; Z79.82 Long term (current) use of aspirin; Z95.2 Presence of prosthetic heart valve; Z95.1 Presence of aortocoronary bypass graft; Z87.891 Personal history of nicotine dependence; Z68.21 Body mass index [BMI] 21.0-21.9, adult
CPT/HCPCS: 36415; 36430; 80048; 80053; 81003; 81015; 83605; 84484; 85014; 85018; 85025; 85049; 86850; 86900; 86901; 86922; 87040; 87077; 87086; 87186; 93005; 93010; 96374; 96375; C9113; J0696; P9016; U0003; U0005

== ENCOUNTER 2021-07-14 11:03 | Day surgery (SDC) | payer MEDICARE ==
[2021-07-14] MEDS ORDERED: diphenhydrAMINE 25 MG CAP PO SCH (12:00)
[2021-07-14] MEDS ORDERED: diphenhydrAMINE 25 MG CAP ONE (12:00)
[2021-07-14] MEDS ORDERED: Acetaminophen 500 MG TAB PO SCH (12:00)
[2021-07-14] MEDS ORDERED: Acetaminophen 325 MG TAB ONE (12:00)
[2021-07-14 15:20] VITALS: BP 116/57; TEMP 98
== END 2021-07-14 15:35 | disposition home or self-care (01) ==
LOC: ONC/OP 11:03
PROVIDERS: ATTEND Internal Medicine Hematology & Oncology
PROC: 30233N1 Transfusion of Nonautologous Red Blood Cells into Peripheral Vein, Percutaneous Approach (ICD-10-PCS; principal; 2021-07-14)
DX: D64.9 Anemia, unspecified (principal)
CPT/HCPCS: 36430; 86850; 86870; 86900; 86901; 86922; P9016

== ENCOUNTER 2023-06-14 11:23 | Emergency (ER) | payer BC ==
[2023-06-14 12:26] LABS: #Basophils Less than 0.03 10x3/uL (0.0-0.2); %Basophils 0.4 % (0.0-1.0); %Eosinophils 2.6 % (0.0-10.0); %Monocytes 8.2 % (0.0-10.0); %Neutrophils 77.4 % (42.0-75.0); Hematocrit 33.1 % (36.0-47.0); Hemoglobin 10.4 g/dL (12.0-16.0); Mean Corpuscular HGB CONC 31.4 g/dL (32.0-36.0); Mean Corpuscular Hemoglobin 28.2 pg (27.0-31.0); Mean Corpuscular Volume 89.7 fl (78.0-98.0); Mean Platelet Volume 10.8 fL (7.4-10.4); Platelet Count 163 10x3/uL (130-400); RBC Distribution Width 15.8 % (11.5-14.5); Red Blood Cell (RBC) Count 3.69 mill/uL (4.20-5.40)
[2023-06-14 12:38] LABS: ALT (SGPT) 20 U/L (8-55); AST (SGOT) 35 U/L (5-34); Alkaline Phosphatase 130 U/L (40-110); Anion Gap 15 mmol/L (10-20); BUN (Urea Nitrogen) 52 mg/dL (9.8-20.1); Bilirubin, Total 1.4 mg/dL (0.2-1.2); Calc. Creatinine Clearance 0 mL/min (70-130); Calcium 10.1 mg/dL (7.8-10.44); Carbon Dioxide 24 mmol/L (23-31); Chloride 104 mmol/L (98-107); Estimated GFR 35; Globulin 3.1 g/dL (2.4-3.5); Glucose 101 mg/dL (83-110); Potassium 4.3 mmol/L (3.5-5.1); Protein, Total 7.1 g/dL (5.8-8.1); Sodium 139 mmol/L (136-145)
== END 2023-06-14 15:36 | disposition home or self-care (01) ==
LOC: ERS 11:23
DX: R60.9 Edema, unspecified (principal); I13.0 Hypertensive heart and chronic kidney disease with heart failure and stage 1 through stage 4 chronic kidney disease, or unspecified chronic kidney disease; N18.4 Chronic kidney disease, stage 4 (severe); I48.91 Unspecified atrial fibrillation; Z87.891 Personal history of nicotine dependence; Z79.82 Long term (current) use of aspirin; Z79.899 Other long term (current) drug therapy
CPT/HCPCS: 36416; 80053; 83605; 83880; 85025; 87040; 87149

== ENCOUNTER 2023-09-17 13:57 | Inpatient (IN) | payer MEDICARE ==
[2023-09-17 15:44] LABS: #Basophils Less than 0.03 10x3/uL (0.0-0.2); %Basophils 0.4 % (0.0-1.0); %Eosinophils 1.8 % (0.0-10.0); %Lymphocytes 8.2 % (21.0-51.0); %Monocytes 9.7 % (0.0-10.0); %Neutrophils 79.5 % (42.0-75.0); Hematocrit 35.2 % (36.0-47.0); Hemoglobin 10.5 g/dL (12.0-16.0); Mean Corpuscular HGB CONC 29.8 g/dL (32.0-36.0); Mean Corpuscular Hemoglobin 27.4 pg (27.0-31.0); Mean Corpuscular Volume 91.9 fL (78.0-98.0); Mean Platelet Volume 10.4 fL (7.4-10.4); Platelet Count 208 10x3/uL (130-400); Red Blood Cell (RBC) Count 3.83 mill/uL (4.20-5.40)
[2023-09-17 16:02] LABS: ALT (SGPT) 15 U/L (8-55); AST (SGOT) 23 U/L (5-34); Albumin 3.2 g/dL (3.4-4.8); Alkaline Phosphatase 199 U/L (40-110); Anion Gap 15 mmol/L (10-20); BUN (Urea Nitrogen) 25 mg/dL (9.8-20.1); Bilirubin, Total 1.1 mg/dL (0.2-1.2); CRP,High Sensitivity (Inhouse) 0.77 mg/dL (< or = 0.5); Calc. Creatinine Clearance 0 mL/min (70-130); Calcium 9.5 mg/dL (7.8-10.44); Carbon Dioxide 26 mmol/L (23-31); Chloride 106 mmol/L (98-107); Estimated GFR 40; Globulin 3.3 g/dL (2.4-3.5); Glucose 104 mg/dL (83-110); Potassium 4.3 mmol/L (3.5-5.1); Protein, Total 6.5 g/dL (5.8-8.1); Sodium 143 mmol/L (136-145)
[2023-09-17 16:04] LABS: Troponin I 0.046 ng/mL (< 0.028)
[2023-09-17 16:43] LABS: Bacteria/HPF None Seen HPF (None Seen); Bilirubin Negative (Negative); Blood, Urine Negative (Negative); CAUTI Indications for Culture Dysuria,urgency,freq; Clarity Clear (Clear); Glucose, Urine (Dipstick) Normal (Negative); Ketone, Urine Negative (Negative); Leukocyte 250 Leu/uL (Negative); Nitrite Negative (Negative); Protein, Urine (Dipstick) 30 mg/dL (Neg-Trace); RBC/HPF 0-3 HPF (0-3); Specific Gravity, Urine 1.023 (1.002-1.036); Urobilinogen Normal mg/dL (Less than 2); pH, Urine 5.5 (5.0-9.0)
[2023-09-17 16:51] LABS: Urine Culture Reflex Yes Yes
[2023-09-17] MEDS ORDERED: Furosemide 40 MG (4 mL) VIAL ONE (18:11)
[2023-09-17 19:42] LABS: Troponin I 0.048 ng/mL (< 0.028)
[2023-09-17] MEDS ORDERED: Ondansetron ODT 4 MG TAB PO PRN (20:42)
[2023-09-17] MEDS: Acetaminophen 325 MG TAB PO SCH (21:02)
[2023-09-17 22:21] LABS: Troponin I 0.043 ng/mL (< 0.028)
[2023-09-17 22:53] VITALS: BMI 23.9
[2023-09-18] MEDS ORDERED: Docusate 100 MG CAP PO PRN (01:56)
[2023-09-18 03:55] LABS: #Basophils Less than 0.03 10x3/uL (0.0-0.2); %Basophils 0.5 % (0.0-1.0); %Eosinophils 1.5 % (0.0-10.0); %Lymphocytes 12.1 % (21.0-51.0); %Monocytes 11.2 % (0.0-10.0); %Neutrophils 74.5 % (42.0-75.0); Hematocrit 33.8 % (36.0-47.0); Mean Corpuscular HGB CONC 29.6 g/dL (32.0-36.0); Mean Corpuscular Hemoglobin 27.5 pg (27.0-31.0); Mean Corpuscular Volume 93.1 fL (78.0-98.0); Mean Platelet Volume 10.3 fL (7.4-10.4); Platelet Count 186 10x3/uL (130-400); RBC Distribution Width 16.8 % (11.5-14.5); Red Blood Cell (RBC) Count 3.63 mill/uL (4.20-5.40)
[2023-09-18 04:09] LABS: Anion Gap 14 mmol/L (10-20); BUN (Urea Nitrogen) 26 mg/dL (9.8-20.1); Calc. Creatinine Clearance 30 mL/min (70-130); Calcium 9.2 mg/dL (7.8-10.44); Carbon Dioxide 27 mmol/L (23-31); Chloride 106 mmol/L (98-107); Estimated GFR 43; Glucose 89 mg/dL (83-110); Sodium 143 mmol/L (136-145)
[2023-09-18] MEDS ORDERED: Famotidine 20 MG TAB PO SCH (09:00)
[2023-09-18] MEDS: Aspirin 81 mg Enteric Coated Tablet PO SCH (10:10)
[2023-09-18] MEDS: Pantoprazole DR 40 MG TAB PO SCH (10:12)
[2023-09-18] MEDS: Potassium Chloride 10 MEQ TAB PO SCH (10:12)
[2023-09-18] MEDS: Saccharomyces boulardii 250 MG CAP PO SCH (10:12)
[2023-09-18] MEDS: Furosemide 20 MG (2 mL) VIAL SLOW IVP SCH (10:13)
[2023-09-18] MEDS: Bumetanide 1 MG TAB PO SCH (10:13)
[2023-09-18] MEDS: Amiodarone 200 MG TAB PO SCH (10:13)
[2023-09-18] MEDS: Lidocaine 4% Patch TD SCH (10:14)
[2023-09-18] MEDS: Enoxaparin 40 MG (0.4 mL) SYRINGE SC SCH (10:14)
[2023-09-18] MEDS ORDERED: Iopamidol-370 76% 500 ML MDV (1 ML CHARGE) ONE (14:57)
[2023-09-18] MEDS: Furosemide 40 MG (4 mL) VIAL SLOW IVP SCH (16:04)
[2023-09-18] MEDS: Atorvastatin Calcium 20 MG TAB PO SCH (20:15)
[2023-09-18] MEDS: Transdermal Patch Removal TOP SCH (20:17)
[2023-09-19] MEDS: Furosemide 20 MG (2 mL) VIAL SLOW IVP SCH ×2 (01:22→09:28)
[2023-09-19 05:00] LABS: #Basophils Less than 0.03 10x3/uL (0.0-0.2); %Basophils 0.5 % (0.0-1.0); %Eosinophils 2.7 % (0.0-10.0); %Lymphocytes 12.4 % (21.0-51.0); %Monocytes 10.2 % (0.0-10.0); Hemoglobin 10.5 g/dL (12.0-16.0); Mean Corpuscular HGB CONC 29.2 g/dL (32.0-36.0); Mean Corpuscular Hemoglobin 27.9 pg (27.0-31.0); Mean Corpuscular Volume 95.7 fL (78.0-98.0); Mean Platelet Volume 10.4 fL (7.4-10.4); Platelet Count 184 10x3/uL (130-400); RBC Distribution Width 17.2 % (11.5-14.5); Red Blood Cell (RBC) Count 3.76 mill/uL (4.20-5.40)
[2023-09-19 05:22] LABS: Anion Gap 15 mmol/L (10-20); BUN (Urea Nitrogen) 33 mg/dL (9.8-20.1); Calc. Creatinine Clearance 26 mL/min (70-130); Calcium 9.1 mg/dL (7.8-10.44); Carbon Dioxide 24 mmol/L (23-31); Chloride 105 mmol/L (98-107); Estimated GFR 37; Glucose 104 mg/dL (83-110); Potassium 4.5 mmol/L (3.5-5.1); Sodium 139 mmol/L (136-145)
[2023-09-19] MEDS: Enoxaparin 30 MG (0.3 mL) SYRINGE SC SCH (09:28)
[2023-09-19] MEDS: Bumetanide 1 MG TAB PO SCH ×2 (11:27→21:26)
[2023-09-20] MEDS: Diclofenac 1% 50 GM TOPICAL GEL TP SCH (05:05)
[2023-09-20 05:29] LABS: Anion Gap 10 mmol/L (10-20); BUN (Urea Nitrogen) 35 mg/dL (9.8-20.1); Calc. Creatinine Clearance 28 mL/min (70-130); Calcium 9.4 mg/dL (7.8-10.44); Carbon Dioxide 32 mmol/L (23-31); Chloride 104 mmol/L (98-107); Estimated GFR 44; Glucose 95 mg/dL (83-110); Potassium 4.3 mmol/L (3.5-5.1); Sodium 142 mmol/L (136-145)
[2023-09-20 06:27] LABS: #Basophils Less than 0.03 10x3/uL (0.0-0.2); %Basophils 0.4 % (0.0-1.0); %Eosinophils 1.9 % (0.0-10.0); %Lymphocytes 8.1 % (21.0-51.0); %Monocytes 9.5 % (0.0-10.0); %Neutrophils 80.1 % (42.0-75.0); Hematocrit 35.3 % (36.0-47.0); Hemoglobin 10.3 g/dL (12.0-16.0); Mean Corpuscular HGB CONC 29.2 g/dL (32.0-36.0); Mean Corpuscular Hemoglobin 27.2 pg (27.0-31.0); Mean Corpuscular Volume 93.1 fL (78.0-98.0); Mean Platelet Volume 10.7 fL (7.4-10.4); Platelet Count 187 10x3/uL (130-400); RBC Distribution Width 16.9 % (11.5-14.5); Red Blood Cell (RBC) Count 3.79 mill/uL (4.20-5.40)
[2023-09-20] MEDS: Bumetanide 1 MG TAB PO SCH (08:34)
[2023-09-20] MEDS ORDERED: Diclofenac 1% 50 GM TOPICAL GEL TP SCH (09:00)
[2023-09-20 11:27] VITALS: BP 129/59; TEMP 97.7
[2023-09-24] MEDS ORDERED: Ergocalciferol 1.25 MG(50,000 UNITS) CAP PO SCH (09:00)
== END 2023-09-20 13:44 | DRG 291 ==
LOC: ERS 13:57 → 2NO 18:36 → OBSVTOIN 09-19 07:55
PROVIDERS: ADMIT Family Medicine; ATTEND Family Medicine
DX: I13.0 Hypertensive heart and chronic kidney disease with heart failure and stage 1 through stage 4 chronic kidney disease, or unspecified chronic kidney disease (principal); I50.33 Acute on chronic diastolic (congestive) heart failure; I48.0 Paroxysmal atrial fibrillation; E78.5 Hyperlipidemia, unspecified; N18.32 Chronic kidney disease, stage 3b; M25.511 Pain in right shoulder; D63.1 Anemia in chronic kidney disease; Z66 Do not resuscitate; R82.71 Bacteriuria; R53.81 Other malaise; I87.2 Venous insufficiency (chronic) (peripheral); Z79.899 Other long term (current) drug therapy; Z79.2 Long term (current) use of antibiotics; Z95.1 Presence of aortocoronary bypass graft; Z95.2 Presence of prosthetic heart valve; Z87.891 Personal history of nicotine dependence; Z79.82 Long term (current) use of aspirin
CPT/HCPCS: 36415; 36416; 71045; 71260; 80048; 80053; 81001; 83880; 84443; 84484; 85025; 86141; 87077; 87086; 87186; 93005; 93306; 96374; 97139; J1650; J1940; Q9967

== ENCOUNTER 2023-10-15 11:11 | Inpatient (IN) | payer BC, MEDICARE ==
[2023-10-15 13:13] LABS: #Basophils Less than 0.03 10x3/uL (0.0-0.2); %Basophils 0.3 % (0.0-1.0); %Eosinophils 1.9 % (0.0-10.0); %Monocytes 10.3 % (0.0-10.0); %Neutrophils 79.3 % (42.0-75.0); Hematocrit 32.7 % (36.0-47.0); Hemoglobin 9.8 g/dL (12.0-16.0); Mean Corpuscular Hemoglobin 26.6 pg (27.0-31.0); Mean Corpuscular Volume 88.9 fL (78.0-98.0); Mean Platelet Volume 10.7 fL (7.4-10.4); Platelet Count 190 10x3/uL (130-400); RBC Distribution Width 18.1 % (11.5-14.5); Red Blood Cell (RBC) Count 3.68 mill/uL (4.20-5.40)
[2023-10-15] MEDS ORDERED: Furosemide 20 MG (2 mL) VIAL ONE (13:23)
[2023-10-15 13:34] LABS: ALT (SGPT) 13 U/L (8-55); AST (SGOT) 26 U/L (5-34); Albumin 3.4 g/dL (3.4-4.8); Alkaline Phosphatase 158 U/L (40-110); Anion Gap 13 mmol/L (10-20); BUN (Urea Nitrogen) 37 mg/dL (9.8-20.1); Bilirubin, Total 1.7 mg/dL (0.2-1.2); Calc. Creatinine Clearance 0 mL/min (70-130); Calcium 9.4 mg/dL (7.8-10.44); Carbon Dioxide 25 mmol/L (23-31); Chloride 107 mmol/L (98-107); Estimated GFR 36; Globulin 3.2 g/dL (2.4-3.5); Glucose 112 mg/dL (83-110); Lipase 22 U/L (8-78); Potassium 4.6 mmol/L (3.5-5.1); Protein, Total 6.6 g/dL (5.8-8.1); Sodium 140 mmol/L (136-145)
[2023-10-15 13:41] LABS: Troponin I 0.029 ng/mL (< 0.028)
[2023-10-15] MEDS ORDERED: Ondansetron PF 4 MG/2 ML Vial IVP PRN (14:53)
[2023-10-15] MEDS ORDERED: Calcium Carbonate 500 MG ChewTAB PO PRN (14:53)
[2023-10-15] MEDS ORDERED: Ondansetron ODT 4 MG TAB PO PRN (14:53)
[2023-10-15] MEDS ORDERED: Docusate 100 MG CAP PO PRN (16:10)
[2023-10-15 16:42] VITALS: BMI 24.3
[2023-10-15 16:51] LABS: Troponin I 0.029 ng/mL (< 0.028)
[2023-10-15] MEDS: Ergocalciferol 1.25 MG(50,000 UNITS) CAP PO SCH (18:04)
[2023-10-15] MEDS: Furosemide 40 MG (4 mL) VIAL SLOW IVP SCH (18:04)
[2023-10-15] MEDS: Atorvastatin Calcium 20 MG TAB PO SCH (20:41)
[2023-10-15] MEDS: Pantoprazole DR 40 MG TAB PO SCH (20:41)
[2023-10-15] MEDS: Furosemide 100 MG (10 mL) VIAL SLOW IVP SCH (22:29)
[2023-10-16 04:58] LABS: #Basophils Less than 0.03 10x3/uL (0.0-0.2); %Basophils 0.2 % (0.0-1.0); %Eosinophils 1.5 % (0.0-10.0); %Lymphocytes 7.9 % (21.0-51.0); %Monocytes 12.2 % (0.0-10.0); Hematocrit 32.6 % (36.0-47.0); Hemoglobin 9.8 g/dL (12.0-16.0); Mean Corpuscular HGB CONC 30.1 g/dL (32.0-36.0); Mean Corpuscular Hemoglobin 26.1 pg (27.0-31.0); Mean Corpuscular Volume 86.9 fL (78.0-98.0); Mean Platelet Volume 10.7 fL (7.4-10.4); Platelet Count 182 10x3/uL (130-400); Red Blood Cell (RBC) Count 3.75 mill/uL (4.20-5.40)
[2023-10-16 05:23] LABS: ALT (SGPT) 12 U/L (8-55); AST (SGOT) 19 U/L (5-34); Albumin 3.4 g/dL (3.4-4.8); Alkaline Phosphatase 150 U/L (40-110); Anion Gap 13 mmol/L (10-20); BUN (Urea Nitrogen) 37 mg/dL (9.8-20.1); Calc. Creatinine Clearance 27 mL/min (70-130); Calcium 9.6 mg/dL (7.8-10.44); Carbon Dioxide 29 mmol/L (23-31); Chloride 105 mmol/L (98-107); Estimated GFR 38; Globulin 2.8 g/dL (2.4-3.5); Glucose 106 mg/dL (83-110); Potassium 3.6 mmol/L (3.5-5.1); Protein, Total 6.2 g/dL (5.8-8.1); Sodium 143 mmol/L (136-145)
[2023-10-16 08:01] LABS: Magnesium 2.2 mg/dL (1.6-2.6)
[2023-10-16] MEDS: Amiodarone 200 MG TAB PO SCH (09:23)
[2023-10-16] MEDS: Potassium Chloride 10 MEQ TAB PO SCH (09:24)
[2023-10-16] MEDS: Saccharomyces boulardii 250 MG CAP PO SCH (09:24)
[2023-10-16] MEDS: Enoxaparin 30 MG (0.3 mL) SYRINGE SC SCH (09:24)
[2023-10-16] MEDS: Aspirin 81 mg Enteric Coated Tablet PO SCH (09:24)
[2023-10-16] MEDS: Furosemide 40 MG (4 mL) VIAL SLOW IVP SCH (12:04)
[2023-10-16] MEDS: Potassium Chloride 20 MEQ TAB PO SCH (12:04)
[2023-10-17 05:41] LABS: #Basophils Less than 0.03 10x3/uL (0.0-0.2); %Basophils 0.2 % (0.0-1.0); %Eosinophils 1.9 % (0.0-10.0); %Lymphocytes 7.3 % (21.0-51.0); %Monocytes 10.3 % (0.0-10.0); %Neutrophils 80.1 % (42.0-75.0); Hematocrit 31.8 % (36.0-47.0); Hemoglobin 9.4 g/dL (12.0-16.0); Mean Corpuscular HGB CONC 29.6 g/dL (32.0-36.0); Mean Corpuscular Hemoglobin 26.3 pg (27.0-31.0); Mean Corpuscular Volume 89.1 fL (78.0-98.0); Mean Platelet Volume 10.8 fL (7.4-10.4); Platelet Count 178 10x3/uL (130-400); RBC Distribution Width 17.9 % (11.5-14.5); Red Blood Cell (RBC) Count 3.57 mill/uL (4.20-5.40)
[2023-10-17 05:54] LABS: ALT (SGPT) 10 U/L (8-55); AST (SGOT) 19 U/L (5-34); Albumin 3.1 g/dL (3.4-4.8); Alkaline Phosphatase 141 U/L (40-110); Anion Gap 12 mmol/L (10-20); BUN (Urea Nitrogen) 37 mg/dL (9.8-20.1); Bilirubin, Total 1.8 mg/dL (0.2-1.2); Calc. Creatinine Clearance 27 mL/min (70-130); Calcium 9.2 mg/dL (7.8-10.44); Carbon Dioxide 27 mmol/L (23-31); Chloride 105 mmol/L (98-107); Estimated GFR 39; Globulin 2.7 g/dL (2.4-3.5); Glucose 95 mg/dL (83-110); Potassium 3.8 mmol/L (3.5-5.1); Protein, Total 5.8 g/dL (5.8-8.1); Sodium 140 mmol/L (136-145)
[2023-10-17] MEDS: Sacubitril 24MG/Valsartan 26 MG TAB PO SCH (08:41)
[2023-10-17] MEDS: Bumetanide 1 MG TAB PO SCH (11:30)
[2023-10-17] MEDS: Empagliflozin 10 MG TAB PO SCH (11:31)
[2023-10-17] MEDS ORDERED: Menthol/Camphor Lotion 222 ml Bottle TOP PRN (11:47)
[2023-10-17] MEDS ORDERED: Lidocaine 4% Patch TD PRN (11:47)
[2023-10-17] MEDS ORDERED: Empagliflozin 10 MG TAB PO ONE (11:48)
[2023-10-17] MEDS: Transdermal Patch Removal TOP SCH (22:48)
[2023-10-18] MEDS: Acetaminophen 325 MG TAB PO PRN (01:01)
[2023-10-18 04:42] LABS: #Basophils Less than 0.03 10x3/uL (0.0-0.2); %Basophils 0.2 % (0.0-1.0); %Eosinophils 3.4 % (0.0-10.0); %Lymphocytes 8.5 % (21.0-51.0); %Monocytes 12.9 % (0.0-10.0); %Neutrophils 74.8 % (42.0-75.0); Hematocrit 33.5 % (36.0-47.0); Mean Corpuscular HGB CONC 29.9 g/dL (32.0-36.0); Mean Corpuscular Volume 87.2 fL (78.0-98.0); Mean Platelet Volume 10.2 fL (7.4-10.4); Platelet Count 178 10x3/uL (130-400); RBC Distribution Width 17.9 % (11.5-14.5); Red Blood Cell (RBC) Count 3.84 mill/uL (4.20-5.40)
[2023-10-18 05:07] LABS: ALT (SGPT) 10 U/L (8-55); AST (SGOT) 20 U/L (5-34); Albumin 3.1 g/dL (3.4-4.8); Alkaline Phosphatase 143 U/L (40-110); Anion Gap 12 mmol/L (10-20); BUN (Urea Nitrogen) 34 mg/dL (9.8-20.1); Bilirubin, Total 1.6 mg/dL (0.2-1.2); Calc. Creatinine Clearance 28 mL/min (70-130); Carbon Dioxide 29 mmol/L (23-31); Chloride 104 mmol/L (98-107); Estimated GFR 44; Globulin 2.7 g/dL (2.4-3.5); Glucose 99 mg/dL (83-110); Protein, Total 5.8 g/dL (5.8-8.1); Sodium 141 mmol/L (136-145)
[2023-10-18 12:22] VITALS: BP 113/62; TEMP 98
== END 2023-10-18 15:06 | DRG 291 ==
LOC: ERS 11:11 → INTOOBSV 14:18 → 2NO 14:18 → OBSVTOIN 10-17 12:48
PROVIDERS: ADMIT Family Medicine; ATTEND Family Medicine
DX: I13.0 Hypertensive heart and chronic kidney disease with heart failure and stage 1 through stage 4 chronic kidney disease, or unspecified chronic kidney disease (principal); I50.33 Acute on chronic diastolic (congestive) heart failure; N18.32 Chronic kidney disease, stage 3b; D63.1 Anemia in chronic kidney disease; I48.0 Paroxysmal atrial fibrillation; E78.5 Hyperlipidemia, unspecified; Z66 Do not resuscitate; I25.10 Atherosclerotic heart disease of native coronary artery without angina pectoris; Z95.1 Presence of aortocoronary bypass graft; Z95.2 Presence of prosthetic heart valve; Z79.01 Long term (current) use of anticoagulants
CPT/HCPCS: 36415; 36416; 71045; 80053; 83690; 83735; 83880; 84484; 85025; 93005; 96372; 96374; 96376; G0378; J1650; J1940